=== PATIENT | male | born 1990 | race Caucasian/White ===

== ENCOUNTER 2017-05-09 12:50 | Emergency (ER) | payer SELFPAY ==
--- NOTE | 2017-05-09 13:26 | ER Document Report ---
ED Medical Screen (RME) - General Chief Complaint: Abdominal Pain Stated Complaint: ABDOMINAL PAIN Time Seen by Provider: 05/09/17 13:24 Notes: The patient is a 27-year-old male who presents with 4 days of right-sided abdominal pain. He says that it is a sharp sensation and worsening over the past day. Denies nausea, vomiting, urinary symptoms, diarrhea, constipation or fevers. PE: RUQ tenderness, NAD, tachycardia I have greeted and performed a rapid initial assessment of this patient. A comprehensive ED assessment and evaluation of the patient, analysis of test results and completion of the medical decision making process will be conducted by additional ED providers. TRAVEL OUTSIDE OF THE [place] IN LAST 30 DAYS: No - Related Data Allergies/Adverse Reactions: hydromorphone HCl [From Dilaudid] Allergy (Intermediate, Verified 05/09/17 12:56 ) redness in face Past Medical History - Past Medical History Cardiac Medical History: Denies: Hx Coronary Artery Disease, Hx Hypertension Pulmonary Medical History: Denies: Hx Asthma Endocrine Medical History: Denies: Hx Diabetes Mellitus Type 1, Hx Diabetes Mellitus Type 2 Renal/ Medical History: Denies: Hx Peritoneal Dialysis Psychiatric Medical History: Reports: Hx Depression Traumatic Medical History: Reports: Hx Fractures Past Surgical History: Reports: Hx Orthopedic Surgery - femur - Immunizations Hx Diphtheria, Pertussis, Tetanus Vaccination: Yes Physical Exam - Vital signs Vitals: Temp Pulse Resp BP Pulse Ox 98.0 F 104 H 22 H 151/92 H 96 05/09/17 12:56 05/09/17 12:56 05/09/17 12:56 05/09/17 12:56 05/09/17 12:56 Course - Vital Signs Vital signs: Temp Pulse Resp BP Pulse Ox 98.0 F 104 H 22 H 151/92 H 96 05/09/17 12:56 05/09/17 12:56 05/09/17 12:56 05/09/17 12:56 05/09/17 12:56
[2017-05-09] MEDS ORDERED: MORPHINE SULFATE 10 MG/ML INJ IV ONE ×2 (13:46→16:22)
--- NOTE | 2017-05-09 13:49 | ER Document Report ---
ED GI/ - General Chief Complaint: Abdominal Pain Stated Complaint: ABDOMINAL PAIN Time Seen by Provider: 05/09/17 13:24 Mode of Arrival: Ambulatory Information source: Patient TRAVEL OUTSIDE OF THE [place] IN LAST 30 DAYS: No - HPI Patient complains to provider of: Abdominal pain Onset: Other - 5 days Timing/Duration: Gradual, Persistent Quality of pain: Sharp, Stabbing Severity at maximum: Moderate Severity in ED: Moderate Pain Level: 4 Location: Right flank Associated symptoms: None Exacerbated by: Denies Relieved by: Denies Similar symptoms previously: No Recently seen / treated by doctor: No Notes: 05/09/17 13:47 Patient is a 27-year-old male who presents to the emergency room complaining of right-sided abdominal pain that has been present over the past 5 days, it is sharp and stabbing in nature, he denies a fever or chills, no dysuria or hematuria, no nausea, vomiting or diarrhea, no aggravating or alleviating, he denies a history of similar symptoms previously, he is not currently on any medications, he does not smoke, drink or use drugs - Related Data Allergies/Adverse Reactions: hydromorphone HCl [From Dilaudid] Allergy (Intermediate, Verified 05/09/17 12:56 ) redness in face Past Medical History - General Information source: Patient - Social History Smoking Status: Never Smoker Family History: None Patient has suicidal ideation: No Patient has homicidal ideation: No - Past Medical History Cardiac Medical History: Denies: Hx Coronary Artery Disease, Hx Hypertension Pulmonary Medical History: Denies: Hx Asthma Endocrine Medical History: Denies: Hx Diabetes Mellitus Type 1, Hx Diabetes Mellitus Type 2 Renal/ Medical History: Denies: Hx Peritoneal Dialysis Psychiatric Medical History: Reports: Hx Depression Traumatic Medical History: Reports: Hx Fractures Past Surgical History: Reports: Hx Orthopedic Surgery - femur - Immunizations Hx Diphtheria, Pertussis, Tetanus Vaccination: Yes Review of Systems - Review of Systems Constitutional: No symptoms reported EENT: No symptoms reported Cardiovascular: No symptoms reported Respiratory: No symptoms reported Gastrointestinal: See HPI Genitourinary: No symptoms reported Male Genitourinary: No symptoms reported Musculoskeletal: No symptoms reported Skin: No symptoms reported Hematologic/Lymphatic: No symptoms reported Neurological/Psychological: No symptoms reported -: Yes All other systems reviewed and negative Physical Exam - Vital signs Vitals: Temp Pulse Resp BP Pulse Ox 98.0 F 104 H 22 H 151/92 H 96 05/09/17 12:56 05/09/17 12:56 05/09/17 12:56 05/09/17 12:56 05/09/17 12:56 Interpretation: Normal - General General appearance: Appears well, Alert - HEENT Head: Normocephalic, Atraumatic Eyes: Normal Pupils: PERRL - Respiratory Respiratory status: No respiratory distress Chest status: Nontender Breath sounds: Normal Chest palpation: Normal - Cardiovascular Rhythm: Regular Heart sounds: Normal auscultation Murmur: No - Abdominal Inspection: Normal Distension: No distension Bowel sounds: Normal Tenderness: Tender - Right Flank tenderness Organomegaly: No organomegaly - Back Back: Normal, Nontender - Extremities General upper extremity: Normal inspection, Nontender, Normal color, Normal ROM , Normal temperature General lower extremity: Normal inspection, Nontender, Normal color, Normal ROM , Normal temperature, Normal weight bearing. No: Cassandra's sign - Neurological Neuro grossly intact: Yes Cognition: Normal Orientation: AAOx4 [place] Coma Scale Eye Opening: Spontaneous [place] Coma Scale Verbal: Oriented [place] Coma Scale Motor: Obeys Commands [place] Coma Scale Total: 15 Speech: Normal Motor strength normal: LUE, RUE, LLE, RLE Sensory: Normal - Psychological Associated symptoms: Normal affect, Normal mood - Skin Skin Temperature: Warm Skin Moisture: Dry Skin Color: Normal Course - Re-evaluation Re-evalutation: 05/09/17 17:50 Patient is resting comfortably, denies any respiratory symptoms, no coughing, no chest pain, no shortness of breath, I did review his lab and imaging findings which are unremarkable except for loculated pleural effusion on the right side with a pleural effusion on the left, he reports to me that these have "been there for years", he has been worked up and had chest tubes as well as thoracentesis regarding these problems, since he is not having any respiratory complaints, and he has a known history of this previously, he will be discharged with pain medication and information for follow-up, advised to return if any additional concerns, patient acknowledges understanding and agreement with this plan 05/09/17 17:56 - Vital Signs Vital signs: Temp Pulse Resp BP Pulse Ox 98.0 F 104 H 22 H 151/92 H 96 05/09/17 12:56 05/09/17 12:56 05/09/17 12:56 05/09/17 12:56 05/09/17 12:56 - Laboratory Result Diagrams: 05/09/17 13:33 05/09/17 13:33 Laboratory results interpreted by me: 05/09/17 05/09/17 05/09/17 13:33 13:33 13:33 Lymphocytes % 12.9 L Monocytes % 13.2 H Carbon Dioxide 31 H Urine Protein 30 H Urine Blood SMALL H - Diagnostic Test Radiology reviewed: Image reviewed, Reports reviewed Discharge - Discharge Clinical Impression: Flank pain, acute, Pleural effusion, bilateral Condition: Stable Disposition: HOME, SELF-CARE Instructions: Abdominal Pain ([facility]) Additional Instructions: Follow up with your primary care provider in one to 2 days. Return to the emergency room immediately if symptoms worsen or any additional concerns. Prescriptions: Hydrocodone/Acetaminophen [Hydrocodon-Acetaminophen 5-325] 1 each PO Q6 #14 tablet
[2017-05-09] MEDS: NORMAL SALINE 1000 ML 1,000 ML IV PRN ×2 (13:56→18:18)
[2017-05-09 13:58] LABS: ABSOLUTE MONOCYTES (AUTO) 0.8 10^3/uL (0.1-1.4); ABSOLUTE NEUT (AUTO) 4.2 10^3/uL (1.7-8.2); HEMOGLOBIN 15.2 g/dL (13.5-17.0); WHITE BLOOD COUNT 5.9 10^3/uL (4.0-10.5)
[2017-05-09 14:05] LABS: APPEARANCE,URINE SLIGHTLY-CLOUDY; BILIRUBIN,URINE NEGATIVE (NEGATIVE); GLUCOSE, URINE NEGATIVE (NEGATIVE); KETONES,URINE NEGATIVE (NEGATIVE); LEUKOCYTE ESTERASE,URINE NEGATIVE (NEGATIVE); NITRITE,URINE NEGATIVE (NEGATIVE); PROTEIN,URINE 30 mg/dL (NEGATIVE); URINE SPECIFIC GRAVITY 1.018; UROBILINOGEN,URINE NEGATIVE mg/dL (<2.0)
[2017-05-09 14:06] LABS: ABSOLUTE BASOPHILS # (AUTO) 0.1 10^3/uL (0.0-0.2); ABSOLUTE EOSINOPHILS # (AUTO) 0.1 10^3/uL (0.0-0.6); ABSOLUTE LYMPHOCYTES (AUTO) 0.8 10^3/uL (0.5-4.7); BASOPHILS % (AUTO) 0.9 % (0-2); EOSINOPHILS % (AUTO) 2.4 % (0-6); HEMATOCRIT 44.3 % (37.9-51.0); HGB HCT DIFFERENCE 1.3; LYMPHOCYTES % (AUTO) 12.9 % (13-45); MEAN CORPUSCULAR HEMOGLOBIN 30.6 pg (27.0-33.4); MEAN CORPUSCULAR HGB CONC 34.3 g/dL (32.0-36.0); MEAN CORPUSCULAR VOLUME 89 fl (80-97); MONOCYTES % (AUTO) 13.2 % (3-13); RED BLOOD COUNT 4.97 10^6/uL (4.35-5.55); RED CELL DISTRIBUTION WIDTH 12.8 % (11.5-14.0); SEGMENTED NEUTROPHILS % (AUTO) 70.6 % (42-78)
[2017-05-09 14:17] LABS: ALANINE AMINOTRANSFERASE 22 U/L (21-72); ALBUMIN 4.1 g/dL (3.5-5.0); ALKALINE PHOSPHATASE 84 U/L (38-126); ANION GAP 11 (5-19); ASPARTATE AMINO TRANSFERASE 21 U/L (17-59); BILIRUBIN,DIRECT 0.3 mg/dL (0.0-0.4); BILIRUBIN,TOTAL 1.1 mg/dL (0.2-1.3); BLOOD UREA NITROGEN 14 mg/dL (7-20); CALCIUM 9.2 mg/dL (8.4-10.2); CARBON DIOXIDE 31 mmol/L (22-30); CHLORIDE 101 mmol/L (98-107); CREATININE RESULT 0.72 mg/dL (0.52-1.25); GLUCOSE 87 mg/dL (75-110); LIPASE 39.8 U/L (23-300); POTASSIUM 4.3 mmol/L (3.6-5.0); SODIUM 142.9 mmol/L (137-145); TOTAL PROTEIN 7.6 g/dL (6.3-8.2)
--- NOTE | 2017-05-09 17:33 | RADIOLOGY REPORT (SQ) ---
EXAM DESCRIPTION: CT ABD/PELVIS WITH IV ORAL COMPLETED DATE/TIME: 05/09/2017 4:48 pm REASON FOR STUDY: abdominal pain COMPARISON: None. TECHNIQUE: CT scan of the abdomen and pelvis performed using helical scanning technique with dynamic intravenous contrast injection. Oral contrast. Images reviewed with lung, soft tissue, and bone win dows. Reconstructed coronal and sagittal MPR images reviewed. Delayed images for evaluation of the ur inary system also acquired. All images stored on PACS. All CT scanners at this facility use dose modulation, iterative reconstruction, and/or weight based d osing when appropriate to reduce radiation dose to as low as reasonably achievable (ALARA). [facility]: Dose Right [facility]: CareDose [facility]: Dose Right [facility]: Teradose 4D [facility]: [place] CONTRAST TYPE AND DOSE: contrast/concentration: Isovue 370.00 mg/ml; Total Contrast Delivered: 78.0 ml; Total Saline Delivered: 32.1 ml RENAL FUNCTION: CREATININE 0.7 BUN 14 RADIATION DOSE: Up-to-date CT equipment and radiation dose reduction techniques were employed. CTDIv ol: 6.1 - 8.4 mGy. DLP: 836 mGy-cm.. LIMITATIONS: None. FINDINGS: LOWER CHEST: Subsegmental atelectasis in the lung bases. Calcified pleural plaques in eac h base. Loculated right pleural effusion versus circumferential pleural thickening. Small left pleu ral effusion. LIVER: Normal size. No masses. No dilated ducts. SPLEEN: Normal size. Small cyst. PANCREAS: No masses. No significant calcifications. No adjacent inflammation or peripancreatic fluid collections. Pancreatic duct not dilated. GALLBLADDER: No identified stones by CT criteria. No inflammatory changes to suggest cholecystitis. ADRENAL GLANDS: No significant masses or asymmetry. RIGHT KIDNEY AND URETER: No solid masses. No significant calcifications. No hydronephrosis or hyd roureter. LEFT KIDNEY AND URETER: No solid masses. No significant calcifications. No hydronephrosis or hydr oureter. AORTA AND VESSELS: No aneurysm. No dissection. Renal arteries, SMA, celiac without stenosis. RETROPERITONEUM: No retroperitoneal adenopathy, hemorrhage or masses. BOWEL AND PERITONEAL CAVITY: No masses or inflammatory changes. No free fluid or peritoneal masses. APPENDIX: Normal. PELVIS: No mass or free fluid. Normal bladder. ABDOMINAL WALL: No masses. No hernias. BONES: No significant or acute findings. OTHER: No other significant finding. IMPRESSION: 1. There is considerable pleural disease each side of the chest, especially for a patie nt this young. This includes calcified pleural plaques and apparent pleural effusions. Correlate cl inically, historically. Has the patient had prior studies elsewhere? 2. There is no significant abnormality in the abdomen or pelvis. TECHNICAL DOCUMENTATION: JOB ID: [id number] Quality ID # [id number]: Final reports with documentation of one or more dose reduction techniques (e.g., Au tomated exposure control, adjustment of the mA and/or kV according to patient size, use of iterative reconstruction technique) 2010 [employer]- All Rights Reserved
[2017-05-09 18:39] VITALS: BP 142/80
== END 2017-05-09 18:20 | disposition home or self-care (01) ==
LOC: ER 12:50
DX: R10.9 Unspecified abdominal pain (principal); J90 Pleural effusion, not elsewhere classified
CPT/HCPCS: 96376; 99284; 96361; 96374; 36415; 83690; 85025; 80053; 81001; 74177; J2270; J7030

== ENCOUNTER 2019-06-07 04:36 | Inpatient (IN) | payer OTHER ==
--- NOTE | 2019-06-07 05:16 | ER Document Report ---
Doctor's Note Notes: 06/07/19 05:15 I performed a triage evaluation the patient. Patient is a pleasant 29-year-old male with a complex medical history that is not 100% clear. He presents with difficulty breathing tonight. Says he has had difficulty breathing similar to this before. He says it happened several years ago. He was admitted to [facility] in [place] and says that he thinks his thoracic duct was leaking and they could not stop it and therefore you do have part of his lung removed. Denies any chest pain. Denies any fevers. He has no other complaints at this time. He says he will sometimes get fluid on his lungs because of this previous lung issue. On exam patient has some mild respiratory distress. He is feeling some improvement with supplemental oxygen. He does have rales in the lung bases. Denies any chest pain. I did order chest x-ray as well as baseline blood work. Dictation of this chart was performed using voice recognition software; therefore, there may be some unintended grammatical errors.
[2019-06-07 05:24] LABS: VENOUS BLOOD BASE EXCESS -0.2 mmol/L; VENOUS BLOOD PCO2 43.6 mmHg (35-63); VENOUS BLOOD PH 7.38 (7.30-7.42)
[2019-06-07 05:30] LABS: ALANINE AMINOTRANSFERASE 11 U/L (21-72); ALBUMIN 4.1 g/dL (3.5-5.0); ALKALINE PHOSPHATASE 88 U/L (38-126); ANION GAP 12 (5-19); ASPARTATE AMINO TRANSFERASE 19 U/L (17-59); BILIRUBIN,DIRECT 0.2 mg/dL (0.0-0.4); BILIRUBIN,TOTAL 0.9 mg/dL (0.2-1.3); BLOOD UREA NITROGEN 16 mg/dL (7-20); CALCIUM 9.1 mg/dL (8.4-10.2); CARBON DIOXIDE 26 mmol/L (22-30); CHLORIDE 101 mmol/L (98-107); GLUCOSE 100 mg/dL (75-110); POTASSIUM 4.5 mmol/L (3.6-5.0); TOTAL PROTEIN 7.7 g/dL (6.3-8.2)
[2019-06-07 05:41] LABS: ABSOLUTE BASOPHILS # (AUTO) 0.1 10^3/uL (0.0-0.2); ABSOLUTE EOSINOPHILS # (AUTO) 0.1 10^3/uL (0.0-0.6); ABSOLUTE LYMPHOCYTES (AUTO) 0.4 10^3/uL (0.5-4.7); ABSOLUTE MONOCYTES (AUTO) 0.8 10^3/uL (0.1-1.4); ABSOLUTE NEUT (AUTO) 4.9 10^3/uL (1.7-8.2); BASOPHILS % (AUTO) 1.1 % (0-2); EOSINOPHILS % (AUTO) 1.2 % (0-6); HEMATOCRIT 30.4 % (37.9-51.0); HEMOGLOBIN 9.2 g/dL (13.5-17.0); LYMPHOCYTES % (AUTO) 6.7 % (13-45); MEAN CORPUSCULAR HEMOGLOBIN 21.2 pg (27.0-33.4); MEAN CORPUSCULAR HGB CONC 30.4 g/dL (32.0-36.0); MEAN CORPUSCULAR VOLUME 70 fl (80-97); PLATELET COUNT 431 10^3/uL (150-450); RED BLOOD COUNT 4.36 10^6/uL (4.35-5.55); RED CELL DISTRIBUTION WIDTH 18.1 % (11.5-14.0); TOTAL CELLS COUNTED % (AUTO) 100 %; WHITE BLOOD COUNT 6.2 10^3/uL (4.0-10.5)
[2019-06-07 05:42] LABS: NT PRO BNP 454 pg/mL (<125)
[2019-06-07 05:45] LABS: TROPONIN I < 0.012 ng/mL
--- NOTE | 2019-06-07 06:29 | ER Document Report ---
ED General - General Chief Complaint: Shortness Of Breath Stated Complaint: DIFFICULTY BREATHING/COUGHING UP BLOOD Time Seen by Provider: 06/07/19 05:07 TRAVEL OUTSIDE OF THE [place] IN LAST 30 DAYS: No - HPI Notes: Patient is a 29-year-old male that presents to the emergency department for chief complaint of shortness of breath and hemoptysis. Patient reports pink-tinged sputum over the last 3 weeks. He states it is not daily but a few times a week. Patient reports associated shortness of breath that has been progressively getting worse as well. Patient states when he was 20 he had a leaking thoracic duct which resulted in right lower lobectomy. This was all performed at [facility]. Patient states he has had shortness of breath since but not to this extreme. He states he does intermittently have hemoptysis but not as frequent as he has recently. Patient states during that time he was on blood thinning medications for blood clot in his neck but he is not currently on anticoagulation. He denies known PE or DVT. He denies recent surgery, travel, immobilization and lower extremity swelling or cramping. Patient denies any associated chest pain, palpitations, syncope, fevers and co ugh Past Medical History: Negative Past Surgical History: Right lower lobectomy, right femur fracture repair Social History: Denies drugs alcohol and tobacco Family History: Reviewed and noncontributory for presenting illness Allergies: Reviewed, see documented allergy list. REVIEW OF SYSTEMS: CONSTITUTIONAL : No fever No chills No diaphoresis No recent illness EENT: No vision changes No congestion No sore throat CARDIOVASCULAR: No chest pain No palpitations RESPIRATORY: shortness of breath No cough difficulty breathing GASTROINTESTINAL: No abdominal pain No nausea No vomiting No diarrhea GENITOURINARY: No dysuria No hematuria No difficulty urinating MUSCULOSKELETAL: No back pain No leg pain No arm pain SKIN: No rashes No lesions LYMPHATIC: No swollen, enlarged glands. NEUROLOGICAL: No lightheadedness No headache No weakness No paresthesias PSYCHIATRIC: No anxiety No depression PHYSICAL EXAMINATION: Vital signs reviewed, nursing noted reviewed. GENERAL: Well-appearing, well-nourished and in no acute distress. HEAD: Atraumatic, normocephalic. EYES: Eyes appear normal, extraocular movements intact, sclera anicteric, conj unctiva are normal. ENT: nares patent, oropharynx clear without exudates. Moist mucous membranes. NECK: Normal range of motion, supple without lymphadenopathy LUNGS: Breath sounds diminished with bibasilar Rales to auscultation bilaterally and equal. Tachypneic with mild accessory muscle use HEART: Regular rate and rhythm without murmurs ABDOMEN: Soft, nontender, normoactive bowel sounds. No rebound, guarding, or rigidity. No masses appreciated. EXTREMITIES: Nontender, good range of motion, no pitting or edema. NEUROLOGICAL: No focal neurological deficits. Moves all extremities spon taneously Motor and sensory grossly intact on exam. PSYCH: Normal mood, normal affect. SKIN: Warm, Dry, normal turgor, no rashes or lesions noted on exposed skin - Related Data Allergies/Adverse Reactions: hydromorphone HCl [From Dilaudid] Allergy (Intermediate, Verified 05/09/17 18:27) redness in face Past Medical History - Social History Smoking Status: Never Smoker Chew tobacco use (# tins/day): No Drug Abuse: None Family History: None Patient has suicidal ideation: No Patient has homicidal ideation: No - Past Medical History Cardiac Medical History: Denies: Hx Coronary Artery Disease, Hx Hypertension Pulmonary Medical History: Denies: Hx Asthma Endocrine Medical History: Denies: Hx Diabetes Mellitus Type 1, Hx Diabetes Mellitus Type 2 Renal/ Medical History: Denies: Hx Peritoneal Dialysis Psychiatric Medical History: Reports: Hx Depression Traumatic Medical History: Reports: Hx Fractures Past Surgical History: Reports: Hx Orthopedic Surgery - femur - Immunizations Hx Diphtheria, Pertussis, Tetanus Vaccination: Yes Physical Exam - Vital signs Vitals: Temp Pulse Resp BP Pulse Ox 98.2 F 128 H 24 H 146/71 H 79 L 06/07/19 04:42 06/07/19 04:42 06/07/19 04:42 06/07/19 04:42 06/07/19 04:42 Course - Re-evaluation Re-evalutation: 06/07/19 06:30 Vitals reviewed. Nursing notes reviewed. Patient was 65% SPO2 on room air at presentation. He is currently on 2 L nasal cannula and oxygenating at 95%. Patients EKG shows no ischemic changes 06/07/19 08:02 Patient's chest x-ray shows diffuse opacities consistent with pulmonary edema. He has no PE on CT scan. Patient's blood work shows a slight elevation of BNP. He is also anemic with hemoglobin of 9. Chart review does show previous hemoglobin of 9. Patient will be given a dose of IV Lasix for his pulmonary edema. He is still requiring nasal cannula oxygen to maintain his O2 sats in the 90s and does have an increased work of breathing. Patient's care was discussed with Dr. Cabral Laboratory 06/07/19 06/07/19 06/07/19 04:55 04:55 04:55 WBC 6.2 RBC 4.36 Hgb 9.2 L Hct 30.4 L MCV 70 L MCH 21.2 L MCHC 30.4 L RDW 18.1 H Plt Count 431 Seg Neutrophils % 78.0 Lymphocytes % 6.7 L Monocytes % 13.0 Eosinophils % 1.2 Basophils % 1.1 Absolute Neutrophils 4.9 Absolute Lymphocytes 0.4 L Absolute Monocytes 0.8 Absolute Eosinophils 0.1 Absolute Basophils 0.1 VBG pH VBG pCO2 VBG HCO3 VBG Base Excess Sodium 138.8 Potassium 4.5 Chloride 101 Carbon Dioxide 26 Anion Gap 12 BUN 16 Creatinine 0.67 Est GFR ( Amer) > 60 Est GFR (Non-Af Amer) > 60 Glucose 100 Calcium 9.1 Total Bilirubin 0.9 Direct Bilirubin 0.2 Neonat Total Bilirubin Not Reportable Neonat Direct Bilirubin Not Reportable Neonat Indirect Bili Not Reportable AST 19 ALT 11 L Alkaline Phosphatase 88 Troponin I < 0.012 NT-Pro-B Natriuret Pep 454 H Total Protein 7.7 Albumin 4.1 06/07/19 04:55 WBC RBC Hgb Hct MCV MCH MCHC RDW Plt Count Seg Neutrophils % Lymphocytes % Monocytes % Eosinophils % Basophils % Absolute Neutrophils Absolute Lymphocytes Absolute Monocytes Absolute Eosinophils Absolute Basophils VBG pH 7.38 VBG pCO2 43.6 VBG HCO3 25.0 VBG Base Excess -0.2 Sodium Potassium Chloride Carbon Dioxide Anion Gap BUN Creatinine Est GFR ( Amer) Est GFR (Non-Af Amer) Glucose Calcium Total Bilirubin Direct Bilirubin Neonat Total Bilirubin Neonat Direct Bilirubin Neonat Indirect Bili AST ALT Alkaline Phosphatase Troponin I NT-Pro-B Natriuret Pep Total Protein Albumin Chest X-Ray 06/07/19 05:07 IMPRESSION: Moderate mixed interstitial and airpace opacities. Differential diagnosis includes pulmonary edema, multifocal pneumonia, and chronic interstitial lung disease. h who accepts admission. - Vital Signs Vital signs: Temp Pulse Resp BP Pulse Ox 98.2 F 114 H 22 H 130/80 H 94 06/07/19 04:42 06/07/19 05:13 06/07/19 07:01 06/07/19 07:00 06/07/19 07:01 - Laboratory Result Diagrams: 06/07/19 04:55 06/07/19 04:55 Laboratory results interpreted by me: 06/07/19 06/07/19 06/07/19 04:55 04:55 04:55 Hgb 9.2 L Hct 30.4 L MCV 70 L MCH 21.2 L MCHC 30.4 L RDW 18.1 H Lymphocytes % 6.7 L Absolute Lymphocytes 0.4 L ALT 11 L NT-Pro-B Natriuret Pep 454 H - EKG Interpretation by Me Additional EKG results interpreted by me: 06/07/19 06:29 Interpreted by myself [id number]: Sinus tachycardia, rate 115, normal axis, no ectomy, no STEMI Discharge - Discharge Clinical Impression: Respiratory failure with hypoxia Qualifiers: Chronicity: acute Qualified Code(s): J96.01 - Acute respiratory failure with hypoxia Anemia Qualifiers: Anemia type: other cause Other causes of anemia: other cause, not classified Qualified Code(s): D64.89 - Other specified anemias Pulmonary edema Qualifiers: Chronicity: acute Qualified Code(s): J81.0 - Acute pulmonary edema Condition: Stable Disposition: ADMITTED INPATIENT Admitting Provider: Italo (Hospitalist) Unit Admitted: Telemetry
--- NOTE | 2019-06-07 06:37 | RADIOLOGY REPORT (SQ) ---
EXAM DESCRIPTION: XR CHEST 1 VIEW COMPLETED DATE/TME: 06/07/2019 05:07 CLINICAL HISTORY: 29 years Male, dyspnea COMPARISON: None. NUMBER OF VIEWS/TECHNIQUE: 1/AP FINDINGS: Moderate mixed airspace and interstitial opacities, central. Bilateral lower thoracic opacity/effusion. Adequate lung volume, prominent cardiac silhouette, and intact bony thorax. IMPRESSION: Moderate mixed interstitial and airpace opacities. Differential diagnosis includes pulmonary edema, multifocal pneumonia, and chronic interstitial lung disease.
--- NOTE | 2019-06-07 07:41 | RADIOLOGY REPORT (SQ) ---
EXAM DESCRIPTION: CT CHEST ANGIOGRAPHY WITHOUT THEN WITH IV CONTRAST COMPLETED DATE/TME: 06/07/2019 06:22 CLINICAL HISTORY: 29 years Male, shortness of breath. CREAT 0.67 Comparison: CT, abdomen/pelvis, 05/13/17, images only. Technique: IV contrast. Coronal and sagittal reformat. 3d reconstruction. This exam was performed according to our departmental dose-optimization program, which includes automated exposure control, adjustment of the mA and/or kV according to patient size and/or use of iterative reconstruction technique.[facility]: Dose Right [facility]: CareDose [facility]: Dose Right [facility]: Teradose 4D [facility]: [employer] LIMITATIONS: Posterior sulci not fully imaged. Findings: Bilateral pleural based collections with high attenuation components measuring up to 5.4 cm at the right lateral posterior sulcus partially imaged without significant change compared with prior CT from May 09, 2017. [id number] bilateral pleural effusions. Moderate streaky and consolidative opacity of bilateral lower lungs. Small moderate bilateral pleural effusions. [id number] mediastinal lymphadenopathy. Cardiac enlargement. No pulmonary embolus. Inferior neck, axillae, airway, heart, vasculature, upper abdomen, and musculoskeleton appear otherwise unremarkable. Impression: 1. Moderate mixed interstitial and airpace opacities. Mild/moderate mediastinal lymphadenopathy. Differential diagnosis includes CHF/pulmonary edema, multifocal pneumonia, and chronic interstitial lung disease. 2. Chronic bilateral pleural collections with high attenuation components partially imaged without significant interval change. 3. No pulmonary embolus. 4. Limitation. Posterior sulci not fully imaged.
[2019-06-07] MEDS ORDERED: FUROSEMIDE INJ/PF 40 MG/4 ML SDV IV ONE (07:50)
[2019-06-07] MEDS ORDERED: TEMAZEPAM 15 MG CAPSULE PO PRN (08:45)
[2019-06-07] MEDS ORDERED: ONDANSETRON HCL INJ/PF 4 MG/2 ML SDV IV PRN (08:45)
--- NOTE | 2019-06-07 08:45 | PDOC H&P ---
History of Present Illness History of Present Illness: ELZBIETA VILLAVICENCIO is a 29 year old male patient with past medical history of ruptured thoracic duct for which he undergone thoracotomy and right lower lobectomy at [facility] in [place], presented with chief complaint of intermittent bloodstained sputum for the last 3 weeks. Patient has associated shortness of breath which is worsening gradually. Patient denies any fever, chills, chest pain, palpitation or diaphoresis. Patient denies any loss of appetite, night sweating or weight loss. He denies any contact with chronically coughing patient. He denies also any incarceration or travel outside [place]. His blood work is significant for microcytic anemia with hemoglobin of 9.2 and his BNP is 454. CT scan and chest x-ray are reported as moderate mixed interstitial and airspace opacities. Pulmonary embolism has been ruled out. Past Medical History Cardiac Medical History: Denies: Coronary Artery Disease, Hypertension Pulmonary Medical History: Denies: Asthma Endocrine Medical History: Denies: Diabetes Mellitus Type 1, Diabetes Mellitus Type 2 Psychiatric Medical History: Reports: Depression Past Surgical History Past Surgical History: Reports: Orthopedic Surgery - femur Social History Smoking Status: Never Smoker Frequency of Alcohol Use: None Hx Recreational Drug Use: No Drugs: None Hx Prescription Drug Abuse: No - Advance Directive Resuscitation Status: Full Code Family History Family History: None Parental Family History Reviewed: Yes Children Family History Reviewed: Yes Sibling(s) Family History Reviewed.: Yes Medication/Allergy Home Medications: Ascorbic Acid [C-1000] 500 mg PO DAILY 04/09/16 Aspirin [Aspirin 325 mg Tablet] 325 mg PO DAILY 04/09/16 Cholecalciferol (Vitamin D3) [Vitamin D3 1000 Unit Tablet] 1,000 unit PO DAILY 04/09/16 Docusate Sodium [Colace 100 mg Capsule] 100 mg PO BID 04/09/16 Ergocalciferol (Vitamin D2) [Drisdol 50,000 unit (1.25MG) Capsule] 1 cap PO [id number] 04/09/16 Famotidine 20 mg PO BID 04/09/16 Nafcillin Sodium 2 gm IJ DAILY 04/09/16 Reading-3 Fatty Acids/Fish Oil [Theragran-M 1,200 mg Softgel] 1 each PO WSUPPER 04/09/16 Ferrous Sulfate [Feosol 325 mg Tablet] 325 mg PO BID #60 tablet 04/26/16 Hydrocodone/Acetaminophen [Hydrocodon-Acetaminophen 5-325] 1 each PO Q6 #14 tablet 05/09/17 Allergies/Adverse Reactions: hydromorphone HCl [From Dilaudid] Allergy (Intermediate, Verified 05/09/17 18:27) redness in face Review of Systems Constitutional: ABSENT: chills, fever(s), headache(s), weight gain, weight loss Eyes: ABSENT: visual disturbances Ears: ABSENT: hearing changes Cardiovascular: ABSENT: chest pain, dyspnea on exertion, edema, orthropnea, palpitations Respiratory: PRESENT: dyspnea, hemoptysis Gastrointestinal: ABSENT: abdominal pain, constipation, diarrhea, hematemesis, hematochezia, nausea, vomiting Genitourinary: ABSENT: dysuria, hematuria Musculoskeletal: ABSENT: joint swelling Integumentary: ABSENT: rash, wounds Neurological: ABSENT: abnormal gait, abnormal speech, confusion, dizziness, focal weakness, syncope Psychiatric: ABSENT: anxiety, depression, homidical ideation, suicidal ideation Endocrine: ABSENT: cold intolerance, heat intolerance, polydipsia, polyuria Hematologic/Lymphatic: ABSENT: easy bleeding, easy bruising Physical Exam Vital Signs: Temp Pulse Resp BP Pulse Ox 98.2 F 114 H 22 H 130/80 H 94 06/07/19 04:42 06/07/19 05:13 06/07/19 07:01 06/07/19 07:00 06/07/19 07:01 Intake & Output 06/06/19 06/07/19 06/08/19 06:59 06:59 06:59 Weight 61.235 kg General appearance: PRESENT: mild distress Head exam: PRESENT: atraumatic Eye exam: PRESENT: conjunctiva pink Neck exam: ABSENT: carotid bruit, JVD, lymphadenopathy, thyromegaly Respiratory exam: PRESENT: crackles Cardiovascular exam: PRESENT: RRR. ABSENT: diastolic murmur, rubs, systolic murmur GI/Abdominal exam: PRESENT: normal bowel sounds, soft. ABSENT: distended, guarding, mass, organolmegaly, rebound, tenderness Neurological exam: PRESENT: alert, awake, oriented to person, oriented to place, oriented to time, oriented to situation Results Laboratory Results: 06/07/19 04:55 06/07/19 04:55 06/07/19 06/07/19 06/07/19 04:55 04:55 04:55 WBC 6.2 RBC 4.36 Hgb 9.2 L Hct 30.4 L MCV 70 L MCH 21.2 L MCHC 30.4 L RDW 18.1 H Plt Count 431 Seg Neutrophils % 78.0 Lymphocytes % 6.7 L Monocytes % 13.0 Eosinophils % 1.2 Basophils % 1.1 Absolute Neutrophils 4.9 Absolute Lymphocytes 0.4 L Absolute Monocytes 0.8 Absolute Eosinophils 0.1 Absolute Basophils 0.1 VBG pH 7.38 VBG pCO2 43.6 VBG HCO3 25.0 VBG Base Excess -0.2 Sodium 138.8 Potassium 4.5 Chloride 101 Carbon Dioxide 26 Anion Gap 12 BUN 16 Creatinine 0.67 Est GFR ( Amer) > 60 Est GFR (Non-Af Amer) > 60 Glucose 100 Calcium 9.1 Total Bilirubin 0.9 AST 19 ALT 11 L Alkaline Phosphatase 88 Total Protein 7.7 Albumin 4.1 06/07/19 04:55 Troponin I < 0.012 NT-Pro-B Natriuret Pep 454 H Impressions: Chest X-Ray 06/07/19 05:07 IMPRESSION: Moderate mixed interstitial and airpace opacities. Differential diagnosis includes pulmonary edema, multifocal pneumonia, and chronic interstitial lung disease. Assessment and Plan - Diagnosis (1) Hemoptysis Is this a current diagnosis for this admission?: Yes Plan: Patient presented with chief complaint of intermittent blood-tinged sputum of [address] scan and chest x-ray reported as moderate mixed interstitial and airspace opacities. Patient also stated that he has history of previous intermittent hemoptysis since he had thoracic surgery. We will empirically start him on antibiotics. I will consult Dr. Layton in the management of this patient. (2) Possible multifocal pneumonia Is this a current diagnosis for this admission?: Yes Plan: Patient will be started empirically on Levaquin. (3) History of leaking thoracic duct Is this a current diagnosis for this admission?: Yes Plan: Status post right thoracotomy and right lower lobe lobectomy. We will retrieve his medical records from [facility]. - Inpatient Certification Medical Necessity: Need for IV Antibiotics
[2019-06-07] MEDS: FAMOTIDINE 20 MG TABLET PO SCH ×2 (10:39→21:14)
[2019-06-07] MEDS: LEVOFLOXACIN 750 MG/D5W RTU 750 MG/150 ML RTUPB IV SCH (10:39)
[2019-06-07] MEDS: ACETAMINOPHEN 325 MG TABLET PO PRN (16:34)
--- NOTE | 2019-06-07 18:18 | EKG REPORT ---
SEVERITY:- ABNORMAL ECG - SINUS TACHYCARDIA PROBABLE LEFT ATRIAL ABNORMALITY BORDERLINE RIGHT AXIS DEVIATION BORDERLINE T ABNORMALITIES, ANT-LAT LEADS : Confirmed by: Christianne Pacheco MD 07-Jun-2019 18:17:36
[2019-06-08 06:20] LABS: HEMATOCRIT 25.4 % (37.9-51.0); MEAN CORPUSCULAR HEMOGLOBIN 21.5 pg (27.0-33.4); MEAN CORPUSCULAR HGB CONC 30.8 g/dL (32.0-36.0); MEAN CORPUSCULAR VOLUME 70 fl (80-97); PLATELET COUNT 306 10^3/uL (150-450); RED BLOOD COUNT 3.64 10^6/uL (4.35-5.55); RED CELL DISTRIBUTION WIDTH 18.2 % (11.5-14.0); WHITE BLOOD COUNT 3.3 10^3/uL (4.0-10.5)
[2019-06-08 06:26] LABS: HEMOGLOBIN 7.8 g/dL (13.5-17.0)
[2019-06-08 06:40] LABS: ANION GAP 8 (5-19); BLOOD UREA NITROGEN 21 mg/dL (7-20); CALCIUM 8.6 mg/dL (8.4-10.2); CARBON DIOXIDE 29 mmol/L (22-30); CHLORIDE 100 mmol/L (98-107); GLUCOSE 79 mg/dL (75-110)
[2019-06-08 07:17] LABS: ERYTHROCYTE SEDIMENTATION RATE 28 mm/hr (0-15)
[2019-06-08 07:43] LABS: ABSOLUTE LYMPHOCYTES# (MANUAL) 0.6 10^3/uL (0.5-4.7); ABSOLUTE MONOCYTES # (MANUAL) 0.6 10^3/uL (0.1-1.4); BASOPHILS % (MANUAL) 1 % (0-2); EOSINOPHILS % (MANUAL) 5 % (0-6); LYMPHOCYTES % (MANUAL) 19 % (13-45); MONOCYTES % (MANUAL) 17 % (3-13); SEGMENTED NEUTROPHILS % (MAN) 58 % (42-78); TOTAL CELLS COUNTED 100
[2019-06-08 07:50] LABS: ANISOCYTOSIS 2+; HYPOCHROMASIA 2+; OVALOCYTES 1+; POIKILOCYTOSIS 1+; TEAR DROP CELLS 1+
[2019-06-08 08:25] LABS: PLATELET COMMENT ADEQUATE
[2019-06-08] MEDS: FAMOTIDINE 20 MG TABLET PO SCH ×2 (09:32→21:05)
[2019-06-08] MEDS: LEVOFLOXACIN 750 MG/D5W RTU 750 MG/150 ML RTUPB IV SCH (09:32)
[2019-06-08] MEDS ORDERED: IRON SUCROSE COMPLEX IV ONE (10:00)
[2019-06-08] MEDS ORDERED: NORMAL SALINE IV ONE (10:00)
[2019-06-08] MEDS ORDERED: IRON SUCROSE COMPLEX 300 MG in NORMAL SALINE 250 ML IV ONE (10:00)
--- NOTE | 2019-06-08 10:14 | PDOC PROGRESS REPORT ---
Subjective Progress Note for:: 06/08/19 Subjective:: ELZBIETA VILLAVICENCIO is a 29 year old male patient with past medical history of ruptured thoracic duct for which he undergone thoracotomy and right lower lobectomy at [facility] in [place], presented with chief complaint of intermittent bloodstained sputum for the last 3 weeks. Patient has associated shortness of breath which is worsening gradually. Patient denies any fever, chills, chest pain, palpitation or diaphoresis. Patient denies any loss of appetite, night sweating or weight loss. He denies any contact with chronically coughing patient. He denies also any incarceration or travel outside [place]. His blood work is significant for microcytic anemia with hemoglobin of 9.2 and his BNP is 454. CT scan and chest x-ray are reported as moderate mixed interstitial and airspace opacities. Pulmonary embolism has been ruled out. 06/08/2019: Patient seen and examined while he is resting on chair. Reports this the frequency of his hemoptysis has been decreasing. His shortness of breath is also improving. He does not have fever, nausea, vomiting or diarrhea. He is able to eat and tolerates well. His blood work is stable except for his hemoglobin dropped from 9.27.8. His MCV is also low and he has microcytic anemia. I requested iron studies and stool for occult blood. Patient has been started on Venofer. Reason For Visit: HEMOPTYSIS Physical Exam Vital Signs: Temp Pulse Resp BP Pulse Ox 98.5 F 88 17 112/59 L 100 06/08/19 08:00 06/08/19 08:00 06/08/19 08:00 06/08/19 08:00 06/08/19 08:00 Intake & Output 06/07/19 06/08/19 06/09/19 06:59 06:59 06:59 Intake Total 1380 Balance 1380 Weight 61.235 kg 62.3 kg General appearance: PRESENT: mild distress Head exam: PRESENT: atraumatic Eye exam: PRESENT: conjunctiva pink Neck exam: ABSENT: carotid bruit, JVD, lymphadenopathy, thyromegaly Respiratory exam: PRESENT: decreased breath sounds - Bilaterally Pulses: PRESENT: normal dorsalis pedis pul GI/Abdominal exam: PRESENT: normal bowel sounds, soft. ABSENT: distended, guarding, mass, organolmegaly, rebound, tenderness Neurological exam: PRESENT: alert, oriented to person, oriented to place, oriented to time, oriented to situation Results Laboratory Results: 06/08/19 05:03 06/08/19 05:03 06/08/19 06/08/19 05:03 05:03 WBC 3.3 L RBC 3.64 L Hgb 7.8 L Hct 25.4 L MCV 70 L MCH 21.5 L MCHC 30.8 L RDW 18.2 H Plt Count 306 Seg Neutrophils % Not Reportable Lymphocytes % Not Reportable Monocytes % Not Reportable Eosinophils % Not Reportable Basophils % Not Reportable Absolute Neutrophils Not Reportable Absolute Lymphocytes Not Reportable Absolute Monocytes Not Reportable Absolute Eosinophils Not Reportable Absolute Basophils Not Reportable Sodium 137.3 Potassium 4.0 Chloride 100 Carbon Dioxide 29 Anion Gap 8 BUN 21 H Creatinine 0.87 Est GFR ( Amer) > 60 Est GFR (Non-Af Amer) > 60 Glucose 79 Calcium 8.6 06/07/19 04:55 Troponin I < 0.012 NT-Pro-B Natriuret Pep 454 H Impressions: Chest X-Ray 06/07/19 05:07 IMPRESSION: Moderate mixed interstitial and airpace opacities. Differential diagnosis includes pulmonary edema, multifocal pneumonia, and chronic interstitial lung disease. Assessment and Plan - Diagnosis (1) Microcytic anemia Is this a current diagnosis for this admission?: Yes Plan: Etiology is unclear. Probably blood loss anemia due to chronic hemoptysis. Iron studies requested. He is going to get him Venofer. (2) Hemoptysis Is this a current diagnosis for this admission?: Yes (3) Possible multifocal pneumonia Is this a current diagnosis for this admission?: Yes Plan: Continue current antibiotics (4) History of leaking thoracic duct Is this a current diagnosis for this admission?: Yes Plan: Status post right thoracotomy and right lower lobe lobectomy. We will retrieve his medical records from [facility].
[2019-06-09 06:08] LABS: ABSOLUTE RETICS # 0.095 10^6/uL (0.028-0.122); HEMATOCRIT 25.5 % (37.9-51.0); MEAN CORPUSCULAR HEMOGLOBIN 21.5 pg (27.0-33.4); MEAN CORPUSCULAR VOLUME 69 fl (80-97); PLATELET COUNT 327 10^3/uL (150-450); RED BLOOD COUNT 3.67 10^6/uL (4.35-5.55); RED CELL DISTRIBUTION WIDTH 17.9 % (11.5-14.0); RETICULOCYTE COUNT (AUTO) 2.57 % (0.66-2.85); WHITE BLOOD COUNT 4.7 10^3/uL (4.0-10.5)
[2019-06-09 06:20] LABS: HEMOGLOBIN 7.9 g/dL (13.5-17.0)
[2019-06-09 06:28] LABS: C-REACTIVE PROTEIN 9.7 mg/L (<10.0); IRON(TIBC) 259.8 ug/dL (49-181)
[2019-06-09 07:32] LABS: FOLATE 9.05 ng/mL (>2.76)
[2019-06-09] MEDS: LEVOFLOXACIN 750 MG/D5W RTU 750 MG/150 ML RTUPB IV SCH (09:22)
[2019-06-09] MEDS: FAMOTIDINE 20 MG TABLET PO SCH ×2 (09:23→21:05)
[2019-06-09] MEDS ORDERED: IRON SUCROSE COMPLEX 300 MG in NORMAL SALINE 250 ML IV ONE (10:00)
[2019-06-09] MEDS: ALPRAZOLAM 0.5 MG TABLET PO SCH ×3 (10:55→21:05)
--- NOTE | 2019-06-09 13:57 | PDOC PROGRESS REPORT ---
Subjective Progress Note for:: 06/09/19 Subjective:: ELZBIETA VILLAVICENCIO is a 29 year old male patient with past medical history of ruptured thoracic duct for which he undergone thoracotomy and right lower lobectomy at [facility] in [place], presented with chief complaint of intermittent bloodstained sputum for the last 3 weeks. Patient has associated shortness of breath which is worsening gradually. Patient denies any fever, chills, chest pain, palpitation or diaphoresis. Patient denies any loss of appetite, night sweating or weight loss. He denies any contact with chronically coughing patient. He denies also any incarceration or travel outside [place]. His blood work is significant for microcytic anemia with hemoglobin of 9.2 and his BNP is 454. CT scan and chest x-ray are reported as moderate mixed interstitial and airspace opacities. Pulmonary embolism has been ruled out. 06/08/2019: Patient seen and examined while he is resting on chair. Reports this the frequency of his hemoptysis has been decreasing. His shortness of breath is also improving. He does not have fever, nausea, vomiting or diarrhea. He is able to eat and tolerates well. His blood work is stable except for his hemoglobin dropped from 9.27.8. His MCV is also low and he has microcytic anemia. I requested iron studies and stool for occult blood. Patient has been started on Venofer. 06/09/2019: Patient seen while resting on chair. He is awake alert and oriented. He complains of being depressed. His labs shows that his hemoglobin has slightly increased to 7.9. He is a stool for occult blood is also turned positive. I will consult on consult challenged for possible colonoscopy and EGD. Reason For Visit: HEMOPTYSIS Physical Exam Vital Signs: Temp Pulse Resp BP Pulse Ox 98.2 F 100 18 129/71 H 94 06/09/19 07:53 06/09/19 07:53 06/09/19 07:53 06/09/19 07:53 06/09/19 07:53 Intake & Output 06/08/19 06/09/19 06/10/19 06:59 06:59 06:59 Intake Total 1380 1220 415 Balance 1380 1220 415 Weight 62.3 kg 61.1 kg General appearance: PRESENT: no acute distress Eye exam: PRESENT: conjunctiva pale - Mild bilateral conjunctival pallor Neck exam: ABSENT: carotid bruit, JVD, lymphadenopathy, thyromegaly Respiratory exam: PRESENT: clear to auscultation jone. ABSENT: rales, rhonchi, wheezes Cardiovascular exam: PRESENT: RRR. ABSENT: diastolic murmur, rubs, systolic murmur GI/Abdominal exam: PRESENT: normal bowel sounds, soft. ABSENT: distended, guarding, mass, organolmegaly, rebound, tenderness Neurological exam: PRESENT: alert, awake, oriented to person, oriented to place Results Laboratory Results: 06/09/19 05:30 06/08/19 05:03 06/09/19 06/09/19 06/09/19 05:30 05:30 08:28 WBC 4.7 RBC 3.67 L Hgb 7.9 L Hct 25.5 L MCV 69 L MCH 21.5 L MCHC 31.0 L RDW 17.9 H Plt Count 327 Retic Count (auto) 2.57 Absolute Retic 0.095 Iron 259.8 H TIBC 286 % Saturation 91 Ferritin 95.90 C-Reactive Protein 9.7 Vitamin B12 300.0 Folate 9.05 Stool Occult Blood POSITIVE 06/07/19 04:55 Troponin I < 0.012 NT-Pro-B Natriuret Pep 454 H Impressions: Chest X-Ray 06/07/19 05:07 IMPRESSION: Moderate mixed interstitial and airpace opacities. Differential diagnosis includes pulmonary edema, multifocal pneumonia, and chronic interstitial lung disease. Assessment and Plan - Diagnosis (1) Microcytic anemia Is this a current diagnosis for this admission?: Yes Plan: Stool for occult blood is positive (2) Hemoptysis Is this a current diagnosis for this admission?: Yes Plan: Patient presented with chief complaint of intermittent blood-tinged sputum of [address] scan and chest x-ray reported as moderate mixed interstitial and airspace opacities. Patient also stated that he has history of previous intermittent hemoptysis since he had thoracic surgery. We will empirically start him on antibiotics. I will consult Dr. Layton in the management of this patient. (3) Possible multifocal pneumonia Is this a current diagnosis for this admission?: Yes Plan: Continue current antibiotics (4) History of leaking thoracic duct Is this a current diagnosis for this admission?: Yes
[2019-06-09] MEDS ORDERED: DEXTROSE 40% GEL 15 GM TUBE PO PRN ×4 (14:28→19:38)
[2019-06-09] MEDS ORDERED: DEXTROSE 50%-WATER 25 GM/50 ML DISP.SYRIN IV PRN ×4 (14:28→19:38)
[2019-06-09] MEDS ORDERED: GLUCAGON,HUMAN RECOMB 1 MG INJ SUBCUT PRN ×2 (14:28→19:38)
[2019-06-09] MEDS ORDERED: PEG 3350/NA SULF,BICARB,CL/KCL 4000 ML PO ONE (15:30)
--- NOTE | 2019-06-09 19:49 | PDOC CONSULTATION ---
Consultation Consult Date: 06/09/19 Attending physician:: YUMIKO CROUCH Provider Consulted: GARRETT GILES Consult reason:: Heme positive stool, anemia History of Present Illness Admission Date/PCP: 06/07/19 08:34 Patient complains of: Presents emergency department complaining of hemoptysis History of Present Illness: ELZBIETA VILLAVICENCIO is a 29 year old male Patient presents to the emerge department complaining of hemoptysis. Patient has a long complex history of multiple medical problems including thoracic duct ligation, right pleurodesis, right lower lobectomy [facility] 10 years ago. He has had intermittent episodes of hemoptysis since that time. He presents emergency department with anemia, hemoptysis and the positive stool. He has had multiple upper endoscopies with unknown findings. Patient is pleasant but a poor historian due to poor memory. He has had a few dark stools but now they are loose. He has never had a colonoscopy that he is aware of. Past Medical History Past Medical History: History of thoracic duct ligation, synostosis of the calvarium, rib fractures, right thoracotomy, right lower lobectomy, degree of pericarditis due to Salmonella, history of MRSA infection right lower extremity history of right femoral rodding Cardiac Medical History: Denies: Coronary Artery Disease, Hypertension Pulmonary Medical History: Denies: Asthma Endocrine Medical History: Denies: Diabetes Mellitus Type 1, Diabetes Mellitus Type 2 Psychiatric Medical History: Reports: Depression Past Surgical History Past Surgical History: See above Past Surgical History: Reports: Orthopedic Surgery - femur Social History Smoking Status: Never Smoker Frequency of Alcohol Use: None Hx Recreational Drug Use: No Drugs: None Hx Prescription Drug Abuse: No - Advance Directive Resuscitation Status: Full Code Family History Family History: None, Other - Patient originally from [facility]; now living with brother last 4 years in [facility] Parental Family History Reviewed: Yes Children Family History Reviewed: Yes Sibling(s) Family History Reviewed.: Yes Medication/Allergy Home Medications: No Home Medications 06/07/19 Allergies/Adverse Reactions: hydromorphone HCl [From Dilaudid] Allergy (Intermediate, Verified 05/09/17 18:27) redness in face Review of Systems ROS unobtainable: Due to mental status Ears: ABSENT: hearing changes Cardiovascular: PRESENT: other - History of pericarditis. ABSENT: chest pain, dyspnea on exertion, edema, orthropnea, palpitations Respiratory: PRESENT: other - Tonic respiratory insufficiency, hypoxemia, uses oxygen at home Physical Exam Vital Signs: Temp Pulse Resp BP Pulse Ox 98.0 F 105 H 18 120/74 90 L 06/09/19 16:38 06/09/19 16:38 06/09/19 16:38 06/09/19 16:38 06/09/19 16:38 Intake & Output 06/08/19 06/09/19 06/10/19 06:59 06:59 06:59 Intake Total 1380 1220 1545 Balance 1380 1220 1545 Weight 62.3 kg 61.1 kg General appearance: PRESENT: no acute distress Head exam: PRESENT: other - Scars consistent with previous craniotomy Eye exam: PRESENT: EOMI, other - Mild X Ear exam: PRESENT: normal external ear exam Mouth exam: PRESENT: other Respiratory exam: PRESENT: other - ; Scars chest wall consistent with previous operative interventions GI/Abdominal exam: PRESENT: other - Soft nontender Rectal exam: PRESENT: deferred Musculoskeletal exam: PRESENT: other - Muscular atrophy Neurological exam: PRESENT: awake, oriented to person, oriented to place Results Laboratory Results: 06/09/19 05:30 06/08/19 05:03 06/09/19 06/09/19 06/09/19 05:30 05:30 08:28 WBC 4.7 RBC 3.67 L Hgb 7.9 L Hct 25.5 L MCV 69 L MCH 21.5 L MCHC 31.0 L RDW 17.9 H Plt Count 327 Retic Count (auto) 2.57 Absolute Retic 0.095 Iron 259.8 H TIBC 286 % Saturation 91 Ferritin 95.90 C-Reactive Protein 9.7 Vitamin B12 300.0 Folate 9.05 Stool Occult Blood POSITIVE 06/07/19 04:55 Troponin I < 0.012 NT-Pro-B Natriuret Pep 454 H Impressions: Chest X-Ray 06/07/19 05:07 IMPRESSION: Moderate mixed interstitial and airpace opacities. Differential diagnosis includes pulmonary edema, multifocal pneumonia, and chronic interstitial lung disease. Assessment & Plan - Diagnosis (1) Heme positive stool Is this a current diagnosis for this admission?: Yes Plan: Impression and recommendations: Positive stools. Patient with history hemoptysis, long history of previous upper endoscopies. ReCommendations: 1. We will see with upper and lower endoscopy tomorrow; start bowel prep tonight; planned procedure including bleeding, infection, bowel injury, respiratory complications. He expresses understanding agrees to proceed. 2. Patient may require pulmonary evaluation, possible bronchoscopy. (2) Anemia Qualifiers: Anemia type: other cause Other causes of anemia: other cause, not classified Qualified Code(s): D64.89 - Other specified anemias Is this a current diagnosis for this admission?: Yes (3) Thoracotomy scar of right chest Is this a current diagnosis for this admission?: Yes (4) Hemoptysis Is this a current diagnosis for this admission?: Yes (5) History of leaking thoracic duct Is this a current diagnosis for this admission?: Yes (6) Osteomyelitis of femur Is this a current diagnosis for this admission?: Yes (7) Tobacco use Is this a current diagnosis for this admission?: Yes
[2019-06-10] MEDS: ALPRAZOLAM 0.5 MG TABLET PO SCH ×3 (05:17→21:41)
[2019-06-10 05:52] LABS: HEMATOCRIT 24.7 % (37.9-51.0); MEAN CORPUSCULAR HEMOGLOBIN 21.5 pg (27.0-33.4); MEAN CORPUSCULAR HGB CONC 30.9 g/dL (32.0-36.0); MEAN CORPUSCULAR VOLUME 70 fl (80-97); PLATELET COUNT 288 10^3/uL (150-450); RED BLOOD COUNT 3.54 10^6/uL (4.35-5.55); RED CELL DISTRIBUTION WIDTH 18.5 % (11.5-14.0); WHITE BLOOD COUNT 3.6 10^3/uL (4.0-10.5)
[2019-06-10 05:59] LABS: HEMOGLOBIN 7.6 g/dL (13.5-17.0)
[2019-06-10] MEDS ORDERED: PROPOFOL INJ 200 MG/20 ML VIAL IV ONE (08:18)
[2019-06-10] MEDS ORDERED: EPINEPHRINE INJ 1 MG/10 ML DISP.SYRIN ONE (08:33)
[2019-06-10] MEDS ORDERED: GLUCAGON,HUMAN RECOMB 1 MG INJ ONE (08:34)
[2019-06-10] MEDS ORDERED: DIPHENHYDRAMINE HCL 50 MG/ML VIAL IV PRN (09:43)
[2019-06-10] MEDS ORDERED: ONDANSETRON HCL INJ/PF 4 MG/2 ML SDV IV PRN (09:43)
[2019-06-10] MEDS ORDERED: FENTANYL CITRATE INJ/PF 100 MCG/2 ML AMPUL IV PRN ×3 (09:43)
[2019-06-10] MEDS: FAMOTIDINE 20 MG TABLET PO SCH ×2 (10:02→21:42)
[2019-06-10] MEDS ORDERED: FENTANYL CITRATE INJ/PF 100 MCG/2 ML AMPUL ONE (10:02)
--- NOTE | 2019-06-10 10:05 | Operative Report ---
Operative Report DATE OF SURGERY: 06/10/19 PREOPERATIVE DIAGNOSIS: 1. Blood loss anemia. 2. GI bleed. 3. Hemoptysis POSTOPERATIVE DIAGNOSIS: Same with. 1. Chronic distal esophagitis. 2. Mild duodenitis. 3. Ascending colon polyp. 4. Internal hemorrhoids. 5. Right and left-sided colitis moderately severe. 6. Mild distal proctitis OPERATION: 1. Apical gastroduodenoscopy. 2. Cold forceps biopsy of GE junction. 3. Total colonoscopy to cecum with photodocumentation. 4. Random biopsies of the ascending and descending colon. 5. Random biopsy of distal rectum. 6. ascending colon polypectomy SURGEON: GARRETT GILES ANESTHESIA: LMAC TISSUE REMOVED OR ALTERED: Biopsies as described above COMPLICATIONS: None ESTIMATED BLOOD LOSS: Scant INTRAOPERATIVE FINDINGS: See below PROCEDURE: The patient was taken the preop holding her to the main operating room where LMAC anesthesia was induced. He was placed in the left lateral cubitus position, knees to chest, oral mouthpiece inserted. Surgical plan surgical timeout were conducted. The flexible adult upper endoscope was advanced to the oropharynx, down the esophagus through the stomach into the duodenum. The patient tolerated procedure well. There was no evidence of tumor clot stricture or polyp. There is mild duodenitis but no ulceration. The scope was brought back to the pylorus which was normal. The stomach was essentially normal. No evidence of streaking or ulceration. The scope was retroflexed in the stomach and a good look at the GE junction was obtained. Small hiatal hernia. The scope was brought back to the GE junction in a retrograde fashion. There were chronic changes of the GE junction, with irregularity of the Z line. A random biopsy was chosen of the Z line with a cold forceps device. Minimal bleeding. There was no evidence of stricture tumor or ulceration. The remainder of the esophagus was unremarkable with no evidence of varices. The hypopharynx was grossly unremarkable. The scope was withdrawn. Patient tolerated this portion the procedure well. He is now placed in the extreme left lateral decubitus position. Instrumentation set up for colonoscopy. A rectal exam was performed. Of note the scrotum had multiple small pedunculated skin lesions. A lubricated index finger was inserted into the anal canal. There was no visible or palpable anal rectal pathology. The flexible pediatric colonoscope was advanced through the anal rectal canal all the way to the cecum. This was a reasonably well-prepped bowel with only a minimal amount of liquid watery green stool. The appendiceal orifice was visualized and photographed. The scope was withdrawn through the length of the colon checked the mucosa carefully. There was a small 2 mm pedunculated polyp in the ascending colon which was removed with 2 bites of the cold forceps device. Specimen labeled as ascending colon polyp and sent to pathology for permanent analysis. Bleeding was minimal. The ascending colon was significant for diffuse, variegated inflammation almost in a cobblestone configuration. A random ascending colon mucosal biopsy was chosen with the forceps device and sent as a sending colon. The transverse colon and descending colon had similar changes. A random biopsy of the ascending colon mucosa was also obtained and sent as descending colon mucosa. The upper rectum was spared however the distal rectum had small erythematous spots which were photographed and one biopsied and labeled as the distal rectum. There was no variegation of the mucosa. There were internal hemorrhoids. The scope was withdrawn to the patient's anus. He tolerated the procedure well, and was taken to recovery in stable condition. Impression: Minimal upper endoscopic findings; diffuse right and left sided colonic inflammation, consistent with colitis, moderately severe status post upper and lower endoscopy with multiple biopsies as described above Recommendations: 1. I believe the patient's source of GI bleeding is from the diffuse colitis. We await biopsies and referral to gastroenterology on an outpatient basis as clinically indicated 2. Agree with blood transfusions x2. 3. I discussed the above with hospitalist this morning. Surgery will sign off; reconsult if clinically indicated.
[2019-06-10] MEDS ORDERED: NORMAL SALINE 250 ML IV PRN ×2 (10:19)
--- NOTE | 2019-06-10 10:19 | PDOC PROGRESS REPORT ---
Subjective Progress Note for:: 06/10/19 Subjective:: ELZBIETA VILLAVICENCIO is a 29 year old male patient with past medical history of ruptured thoracic duct for which he undergone thoracotomy and right lower lobectomy at [facility] in [place], presented with chief complaint of intermittent bloodstained sputum for the last 3 weeks. Patient has associated shortness of breath which is worsening gradually. Patient denies any fever, chills, chest pain, palpitation or diaphoresis. Patient denies any loss of appetite, night sweating or weight loss. He denies any contact with chronically coughing patient. He denies also any incarceration or travel outside [place]. His blood work is significant for microcytic anemia with hemoglobin of 9.2 and his BNP is 454. CT scan and chest x-ray are reported as moderate mixed interstitial and airspace opacities. Pulmonary embolism has been ruled out. 06/08/2019: Patient seen and examined while he is resting on chair. Reports this the frequency of his hemoptysis has been decreasing. His shortness of breath is also improving. He does not have fever, nausea, vomiting or diarrhea. He is able to eat and tolerates well. His blood work is stable except for his hemoglobin dropped from 9.27.8. His MCV is also low and he has microcytic anemia. I requested iron studies and stool for occult blood. Patient has been started on Venofer. 06/09/2019: Patient seen while resting on chair. He is awake alert and oriented. He complains of being depressed. His labs shows that his hemoglobin has slightly increased to 7.9. He is a stool for occult blood is also turned positive. I will consult on consult challenged for possible colonoscopy and EGD. 06/10/2019: This morning patient has undergone EGD and colonoscopy. The EGD is unremarkable the colonoscopy revealed diffuse variegated inflammation of the ascending transverse and descending colon, which is suspicious for IBD. Biopsy taken. After 2 bags of Venofer hemoglobin further dropped to 7.6. I think it is appropriate to transfuse him 1 unit of packed RBC. Reason For Visit: HEMOPTYSIS Physical Exam Vital Signs: Temp Pulse Resp BP Pulse Ox 98.3 F 87 18 120/62 98 06/10/19 07:24 06/10/19 07:24 06/10/19 07:24 06/10/19 07:24 06/10/19 07:24 Intake & Output 06/09/19 06/10/19 06/11/19 06:59 06:59 06:59 Intake Total 1220 3245 Balance 1220 3245 Weight 61.1 kg 62.2 kg General appearance: PRESENT: no acute distress Eye exam: PRESENT: conjunctiva pale Neck exam: ABSENT: carotid bruit, JVD, lymphadenopathy, thyromegaly Respiratory exam: PRESENT: clear to auscultation jone. ABSENT: rales, rhonchi, wheezes Cardiovascular exam: PRESENT: RRR. ABSENT: diastolic murmur, rubs, systolic murmur GI/Abdominal exam: PRESENT: normal bowel sounds, soft. ABSENT: distended, guarding, mass, organolmegaly, rebound, tenderness Neurological exam: PRESENT: alert, awake, oriented to person, oriented to place, oriented to time, oriented to situation Results Laboratory Results: 06/10/19 05:19 06/08/19 05:03 06/10/19 06/10/19 05:19 05:19 WBC 3.6 L RBC 3.54 L Hgb 7.6 L Hct 24.7 L MCV 70 L MCH 21.5 L MCHC 30.9 L RDW 18.5 H Plt Count 288 C-Reactive Protein 14.2 H 06/07/19 04:55 Troponin I < 0.012 NT-Pro-B Natriuret Pep 454 H Impressions: Chest X-Ray 06/07/19 05:07 IMPRESSION: Moderate mixed interstitial and airpace opacities. Differential diagnosis includes pulmonary edema, multifocal pneumonia, and chronic interstitial lung disease. Assessment and Plan - Diagnosis (1) Microcytic anemia Is this a current diagnosis for this admission?: Yes Plan: Due to acute on chronic blood loss anemia. His colonoscopy revealed diffuse variegated inflammation of his ascending, transverse and descending colon. Start to box of Venofer his hemoglobin further dropped to 7.6 so I will transfuse him with 1 unit of packed RBC. (2) Hemoptysis Is this a current diagnosis for this admission?: Yes Plan: I discussed the case with Dr. Layton and he states that he will probably scope aim on Tuesday. (3) Possible multifocal pneumonia Is this a current diagnosis for this admission?: Yes Plan: Continue current antibiotics (4) History of leaking thoracic duct Is this a current diagnosis for this admission?: Yes Plan: Status post right thoracotomy and right lower lobe lobectomy. We will retrieve his medical records from [facility].
[2019-06-10] MEDS: LEVOFLOXACIN 750 MG/D5W RTU 750 MG/150 ML RTUPB IV SCH (10:57)
[2019-06-10] MEDS: ACETAMINOPHEN 325 MG TABLET PO PRN (11:01)
[2019-06-10 22:34] LABS: ABSOLUTE BASOPHILS # (AUTO) 0.1 10^3/uL (0.0-0.2); ABSOLUTE EOSINOPHILS # (AUTO) 0.2 10^3/uL (0.0-0.6); ABSOLUTE LYMPHOCYTES (AUTO) 0.5 10^3/uL (0.5-4.7); ABSOLUTE MONOCYTES (AUTO) 0.8 10^3/uL (0.1-1.4); ABSOLUTE NEUT (AUTO) 3.8 10^3/uL (1.7-8.2); BASOPHILS % (AUTO) 1.2 % (0-2); HEMATOCRIT 36.7 % (37.9-51.0); LYMPHOCYTES % (AUTO) 9.8 % (13-45); MEAN CORPUSCULAR HEMOGLOBIN 23.4 pg (27.0-33.4); MEAN CORPUSCULAR HGB CONC 31.5 g/dL (32.0-36.0); MONOCYTES % (AUTO) 15.1 % (3-13); PLATELET COUNT 351 10^3/uL (150-450); RED BLOOD COUNT 4.92 10^6/uL (4.35-5.55); RED CELL DISTRIBUTION WIDTH 19.6 % (11.5-14.0); SEGMENTED NEUTROPHILS % (AUTO) 70.9 % (42-78); TOTAL CELLS COUNTED % (AUTO) 100 %; WHITE BLOOD COUNT 5.4 10^3/uL (4.0-10.5)
[2019-06-10 22:36] LABS: HEMOGLOBIN 11.5 g/dL (13.5-17.0); MEAN CORPUSCULAR VOLUME 75 fl (80-97)
[2019-06-11] MEDS: ACETAMINOPHEN 325 MG TABLET PO PRN ×2 (00:03→12:39)
[2019-06-11 06:39] LABS: HEMOGLOBIN 10.2 g/dL (13.5-17.0); MEAN CORPUSCULAR HEMOGLOBIN 23.6 pg (27.0-33.4); MEAN CORPUSCULAR VOLUME 74 fl (80-97); PLATELET COUNT 291 10^3/uL (150-450); RED BLOOD COUNT 4.34 10^6/uL (4.35-5.55); RED CELL DISTRIBUTION WIDTH 19.8 % (11.5-14.0); WHITE BLOOD COUNT 4.3 10^3/uL (4.0-10.5)
[2019-06-11] MEDS: ALPRAZOLAM 0.5 MG TABLET PO SCH ×2 (06:51→13:46)
[2019-06-11] MEDS: FAMOTIDINE 20 MG TABLET PO SCH ×2 (09:35→21:45)
[2019-06-11] MEDS: LEVOFLOXACIN 750 MG/D5W RTU 750 MG/150 ML RTUPB IV SCH (09:35)
--- NOTE | 2019-06-11 12:48 | PDOC PROGRESS REPORT ---
Subjective Progress Note for:: 06/11/19 Subjective:: ELZBIETA VILLAVICENCIO is a 29 year old male patient with past medical history of ruptured thoracic duct for which he undergone thoracotomy and right lower lobectomy at [facility] in [place], presented with chief complaint of intermittent bloodstained sputum for the last 3 weeks. Patient has associated shortness of breath which is worsening gradually. Patient denies any fever, chills, chest pain, palpitation or diaphoresis. Patient denies any loss of appetite, night sweating or weight loss. He denies any contact with chronically coughing patient. He denies also any incarceration or travel outside [place]. His blood work is significant for microcytic anemia with hemoglobin of 9.2 and his BNP is 454. CT scan and chest x-ray are reported as moderate mixed interstitial and airspace opacities. Pulmonary embolism has been ruled out. 06/08/2019: Patient seen and examined while he is resting on chair. Reports this the frequency of his hemoptysis has been decreasing. His shortness of breath is also improving. He does not have fever, nausea, vomiting or diarrhea. He is able to eat and tolerates well. His blood work is stable except for his hemoglobin dropped from 9.27.8. His MCV is also low and he has microcytic anemia. I requested iron studies and stool for occult blood. Patient has been started on Venofer. 06/09/2019: Patient seen while resting on chair. He is awake alert and oriented. He complains of being depressed. His labs shows that his hemoglobin has slightly increased to 7.9. He is a stool for occult blood is also turned positive. I will consult on consult challenged for possible colonoscopy and EGD. 06/10/2019: This morning patient has undergone EGD and colonoscopy. The EGD is unremarkable the colonoscopy revealed diffuse variegated inflammation of the ascending transverse and descending colon, which is suspicious for IBD. Biopsy taken. After 2 bags of Venofer hemoglobin further dropped to 7.6. I think it is appropriate to transfuse him 1 unit of packed RBC. 06/11/2019: Patient seen while he is resting on chair. He is awake alert oriented. He states that the frequency of his hemoptysis has decreased. Dr. Layton will schedule him for bronchoscopy tomorrow. Reason For Visit: HEMOPTYSIS Physical Exam Vital Signs: Temp Pulse Resp BP Pulse Ox 98.1 F 74 24 H 110/58 L 98 06/11/19 07:36 06/11/19 07:36 06/11/19 07:36 06/11/19 07:36 06/11/19 07:36 Intake & Output 06/10/19 06/11/19 06/12/19 06:59 06:59 06:59 Intake Total 3245 1950 150 Balance 3245 1950 150 Weight 62.2 kg 63.8 kg General appearance: PRESENT: no acute distress Eye exam: PRESENT: conjunctiva pink Neck exam: ABSENT: carotid bruit, JVD, lymphadenopathy, thyromegaly Respiratory exam: PRESENT: decreased breath sounds Cardiovascular exam: PRESENT: RRR. ABSENT: diastolic murmur, rubs, systolic murmur GI/Abdominal exam: PRESENT: normal bowel sounds, soft. ABSENT: distended, guarding, mass, organolmegaly, rebound, tenderness Neurological exam: PRESENT: alert, awake, oriented to person, oriented to place, oriented to time, oriented to situation Results Laboratory Results: 06/11/19 05:50 06/08/19 05:03 06/10/19 06/10/19 06/11/19 10:50 22:12 05:50 WBC 5.4 4.3 RBC 4.92 4.34 L Hgb 11.5 L D 10.2 L Hct 36.7 L 32.0 L MCV 75 L D 74 L MCH 23.4 L 23.6 L MCHC 31.5 L 32.0 RDW 19.6 H 19.8 H Plt Count 351 291 Seg Neutrophils % 70.9 Lymphocytes % 9.8 L Monocytes % 15.1 H Eosinophils % 3.0 Basophils % 1.2 Absolute Neutrophils 3.8 Absolute Lymphocytes 0.5 Absolute Monocytes 0.8 Absolute Eosinophils 0.2 Absolute Basophils 0.1 Blood Type A POSITIVE Antibody Screen NEGATIVE 06/08/19 15:30 Sputum Gram Stain - Final 06/08/19 15:30 Sputum Sputum Culture - Final NORMAL CYNTHIA 06/07/19 04:55 Troponin I < 0.012 NT-Pro-B Natriuret Pep 454 H Impressions: Chest X-Ray 06/07/19 05:07 IMPRESSION: Moderate mixed interstitial and airpace opacities. Differential diagnosis includes pulmonary edema, multifocal pneumonia, and chronic interstitial lung disease. Assessment and Plan - Diagnosis (1) Microcytic anemia Is this a current diagnosis for this admission?: Yes Plan: Due to acute on chronic blood loss anemia. His colonoscopy revealed diffuse variegated inflammation of his ascending, transverse and descending colon. Start to box of Venofer his hemoglobin further dropped to 7.6 so I will transfuse him with 1 unit of packed RBC. (2) Hemoptysis Is this a current diagnosis for this admission?: Yes Plan: I discussed the case with Dr. Layton and he states that he will probably scope aim on Tuesday. (3) Possible multifocal pneumonia Is this a current diagnosis for this admission?: Yes Plan: Continue current antibiotics (4) History of leaking thoracic duct Is this a current diagnosis for this admission?: Yes Plan: Status post right thoracotomy and right lower lobe lobectomy. We will retrieve his medical records from [facility].
[2019-06-11] MEDS: KETOROLAC TROMETHAMINE INJ/PF 30 MG/1 ML SDV IV PRN (21:45)
[2019-06-11] MEDS: ALPRAZOLAM 0.5 MG TABLET PO PRN (23:03)
[2019-06-12] MEDS: FAMOTIDINE 20 MG TABLET PO SCH ×2 (09:13→22:23)
[2019-06-12] MEDS: LEVOFLOXACIN 750 MG TABLET PO SCH (09:13)
--- NOTE | 2019-06-12 10:52 | RADIOLOGY REPORT (SQ) ---
EXAM DESCRIPTION: CHEST 2 VIEWS COMPLETED DATE/TIME: 06/12/2019 10:36 am REASON FOR STUDY: pna/hemoptysis COMPARISON: CT angio chest 06/07/2019 CT abdomen pelvis 05/09/2017 AP chest 06/07/2019 EXAM PARAMETERS: NUMBER OF VIEWS: two views TECHNIQUE: Digital Frontal and Lateral radiographic views of the chest acquired. RADIATION DOSE: NA LIMITATIONS: none FINDINGS: LUNGS AND PLEURA: Stable pleural thickening/ bilateral pleural effusions right [place] n left. There pleural calcification along the right lower hemithorax unchanged from recent chest kerwin m 06/07/[address] abdomen pelvis 05/09/2017 Bibasilar consolidation is present unchanged from chest film 06/07/[address] 06/07/2019 and 05/09/2017. Pulmonary vascular congestion in the upper lobes is present. No gross alveolar edema. No pneumothorax MEDIASTINUM AND HILAR STRUCTURES: Surgical clips are present near the GE junction. HEART AND VASCULAR STRUCTURES: Cardiac silhouette size upper limits of normal BONES: No acute findings. HARDWARE: None in the chest. OTHER: No other significant finding. IMPRESSION: Chronic findings of pleural thickening with bilateral pleural effusions and bibasilar co nsolidation likely scarring. Evidence of old prior surgery near the GE junction Today's images demonstrate no gross acute findings TECHNICAL DOCUMENTATION: JOB ID: [id number] [employer]- All Rights Reserved Reading location - IP/workstation name: [email or web address]
--- NOTE | 2019-06-12 11:04 | Progress Note Acknowledgement ---
Progress Note Acknowledgement Progess Note Acknowledgement: I, the undersigned member of the medical staff with appropriate privileges and with supervisory authority over [Shamir Jacobs], a dependent practice allied health professional, acknowledge that I have reviewed the progress notes entered on this patient, and in my professional judgment believe that the assessment made and/or any care evidenced was appropriate
--- NOTE | 2019-06-12 11:08 | PDOC PROGRESS REPORT ---
Subjective Progress Note for:: 06/12/19 Subjective:: June 12, 2019-no complaints this a.m. Reason For Visit: HEMOPTYSIS Physical Exam Vital Signs: Temp Pulse Resp BP Pulse Ox 98.0 F 87 19 109/67 95 06/12/19 07:21 06/12/19 07:21 06/12/19 07:21 06/12/19 07:21 06/12/19 07:21 Intake & Output 06/11/19 06/12/19 06/13/19 06:59 06:59 06:59 Intake Total 1950 650 Balance 1950 650 Weight 63.8 kg 63.8 kg General appearance: PRESENT: no acute distress, well-developed, well-nourished Head exam: PRESENT: atraumatic, normocephalic Eye exam: PRESENT: conjunctiva pink, EOMI, PERRLA. ABSENT: scleral icterus Ear exam: PRESENT: normal external ear exam Mouth exam: PRESENT: moist, tongue midline Neck exam: ABSENT: carotid bruit, JVD, lymphadenopathy, thyromegaly Respiratory exam: PRESENT: clear to auscultation jone. ABSENT: rales, rhonchi, wheezes Cardiovascular exam: PRESENT: RRR. ABSENT: diastolic murmur, rubs, systolic murmur Pulses: PRESENT: normal dorsalis pedis pul Vascular exam: PRESENT: normal capillary refill GI/Abdominal exam: PRESENT: normal bowel sounds, soft. ABSENT: distended, guarding, mass, organolmegaly, rebound, tenderness Rectal exam: PRESENT: deferred Extremities exam: PRESENT: full ROM. ABSENT: calf tenderness, clubbing, pedal edema Neurological exam: PRESENT: alert, awake, oriented to person, oriented to place, oriented to time, oriented to situation, CN II-XII grossly intact. ABSENT: motor sensory deficit Psychiatric exam: PRESENT: appropriate affect, normal mood. ABSENT: homicidal ideation, suicidal ideation Skin exam: PRESENT: dry, intact, warm. ABSENT: cyanosis, rash Results Laboratory Results: 06/11/19 05:50 06/08/19 05:03 06/07/19 04:55 Troponin I < 0.012 NT-Pro-B Natriuret Pep 454 H Impressions: Chest X-Ray 06/12/19 00:00 IMPRESSION: Chronic findings of pleural thickening with bilateral pleural effusions and bibasilar consolidation likely scarring. Evidence of old prior surgery near the GE junction Today's images demonstrate no gross acute findings Assessment and Plan - Diagnosis (1) Microcytic anemia Is this a current diagnosis for this admission?: Yes Plan: Due to acute on chronic blood loss anemia. His colonoscopy revealed diffuse variegated inflammation of his ascending, transverse and descending colon. Start to box of Venofer his hemoglobin further dropped to 7.6 so I will transfuse him with 1 unit of packed RBC. June 12, 2019-most likely to chronic blood loss. Patient was heme positive on occult stool. Patient underwent colonoscopy and endoscopy per surgicalist with no acute findings. Biopsies were taken. Patient was started on Venofer but had a further drop in his hemoglobin so he was transfused 1 unit of packed red cells. At this time hemoglobin is 10 seem to be stable. Will repeat CBC in a.m. (2) Hemoptysis Is this a current diagnosis for this admission?: Yes Plan: I discussed the case with Dr. Layton and he states that he will probably scope aim on Tuesday. June 12, 2019-await bronchoscopy per Dr. Layton. (3) Possible multifocal pneumonia Is this a current diagnosis for this admission?: Yes Plan: Continue current antibiotics 06/12/2019-continue on Levaquin. Await cultures. (4) History of leaking thoracic duct Is this a current diagnosis for this admission?: Yes Plan: Status post right thoracotomy and right lower lobe lobectomy. We will retrieve his medical records from [facility]. June 12, 2019-awaiting records from [facility]. Patient planning to move back to [place] with family after discharge so he can be seen back at [facility] in case he needs some further treatment for this leaky thoracic duct. - Time Time Spent with patient: 15-24 minutes - Inpatient Certification Based on my medical assessment, after consideration of the patient's comorbidities, presenting symptoms, or acuity I expect that the services needed warrant INPATIENT care.: Yes I certify that my determination is in accordance with my understanding of Medicare's requirements for reasonable and necessary INPATIENT services [42 CFR 412.3e].: Yes Medical Necessity: Other - Monitor hemoglobin, bronchoscopy
[2019-06-12] MEDS ORDERED: VANCOMYCIN HCL 0 MG in DEXTROSE 5%-WATER 250 ML IV NR (11:45)
[2019-06-12 14:19] LABS: TOTAL PROTEIN 6.5 g/dL (6.3-8.2)
[2019-06-12] MEDS: VANCOMYCIN HCL 750 MG in DEXTROSE 5%-WATER 250 ML IV SCH ×2 (19:44→22:23)
--- NOTE | 2019-06-12 21:23 | XCELERA REPORT ---
[address] [address] Transthoracic Echocardiogram Report Name: ELZBIETA VILLAVICENCIO Age: 29 yrs Gender: Male : 1990 Patient Status: Inpatient Patient Location: ^[facility]^A Study Date: 06/12/2019 02:02 PM Height: 65 in Weight: 140 lb BSA: 1.7 m2 Procedure: A two-dimensional transthoracic echocardiogram with color flow and Doppler was performed. Study Quality: Fair. Reason For Study: vegatation / Endocarditis. History: vegatation / Endocarditis. Ordering Physician: JOHNATHAN^JAMES^R^^PAPER CUP HANDLE MACHINE OPERATOR Performed By: Luci Franco Interpretation Summary No defenite vegetation seen, but recommend RUSSEL to assess for this and to see if there is a PFO or small ASD. The left ventricle is normal in size. There is normal left ventricular wall thickness. The left ventricular ejection fraction is within normal limits. LV EF is 60% Doppler measurements suggest normal left ventricular diastolic function The left ventricular wall motion is normal. There is no thrombus. The Interatrial septum is aneurysmal.Cannot excude a PFO or small ASD,but no significant intracardiac shunts.No VSD seen. The right ventricle is normal in size and function. The right atrium is borderline dilated. The left atrial size is normal. There is no evidence of mitral valve prolapse. There is no vegetation seen on the mitral valve. There is no mitral valve stenosis. There is a trace to mild amount of mitral regurgitation There is no aortic valvular vegetation. There is no aortic valve stenosis There is no LVOT obstruction. No aortic regurgitation is present. There is no tricuspid stenosis. There is a trace to mild amount of tricuspid regurgitation There is mild pulmonary hypertension by echo RVSP is 40 mm of Hg , with RA mean of 0 to 5. The pulmonic valve is not well visualized. There is no pulmonic valvular stenosis. There is no pulmonic valvular regurgitation. The aortic root is normal size. The inferior vena cava appeared small and collapsed with respiration (RAP 0-5 mmHg) There is no pericardial effusion. No defenite vegetation seen, but recommend RUSSEL to assess for this and to see if there is a PFO or small ASD. MMode/2D Measurements & Calculations RVDd: 3.6 cm LVIDd: 5.1 cm FS: 30.5 % Ao root diam: 3.2 cm IVSd: 0.75 cm LVIDs: 3.6 cm EDV(Teich): 124.9 ml Ao root area: 8.0 cm2 LVPWd: 0.70 cm ESV(Teich): 53.0 ml EF(Teich): 57.6 % Doppler Measurements & Calculations MV E max laurie: MV dec slope: Ao V2 max: LV V1 max P.7 cm/sec 380.9 cm/sec2 82.2 cm/sec 2.0 mmHg MV A max laurie: MV dec time: 0.18 sec Ao max PG: LV V1 max: 55.5 cm/sec 2.7 mmHg 71.4 cm/sec MV E/A: 1.2 PA V2 max: TR max laurie: 68.9 cm/sec 294.8 cm/sec PA max P.9 mmHg TR max P.9 mmHg Left Ventricle The left ventricle is normal in size. There is normal left ventricular wall thickness. The left ventricular ejection fraction is within normal limits. LV EF is 60%. Doppler measurements suggest normal left ventricular diastolic function. The left ventricular wall motion is normal. There is no thrombus. The Interatrial septum is aneurysmal.Cannot excude a PFO or small ASD,but no significant intracardiac shunts.No VSD seen. Right Ventricle The right ventricle is normal in size and function. Atria The right atrium is borderline dilated. The left atrial size is normal. Mitral Valve There is no evidence of mitral valve prolapse. There is no vegetation seen on the mitral valve. There is no mitral valve stenosis. There is a trace to mild amount of mitral regurgitation. Aortic Valve There is no aortic valvular vegetation. There is no aortic valve stenosis. There is no LVOT obstruction. No aortic regurgitation is present. Tricuspid Valve There is no tricuspid stenosis. There is a trace to mild amount of tricuspid regurgitation. There is mild pulmonary hypertension by echo. RVSP is 40 mm of Hg , with RA mean of 0 to 5. Pulmonic Valve The pulmonic valve is not well visualized. There is no pulmonic valvular stenosis. There is no pulmonic valvular regurgitation. Great Vessels The aortic root is normal size. The inferior vena cava appeared small and collapsed with respiration (RAP 0-5 mmHg). Effusions There is no pericardial effusion. : JOHNATHAN^JAMES^R^^PAPER CUP HANDLE MACHINE OPERATOR > Christianne Pacheco
[2019-06-12] MEDS: ALPRAZOLAM 0.5 MG TABLET PO PRN (22:23)
[2019-06-13] MEDS: KETOROLAC TROMETHAMINE INJ/PF 30 MG/1 ML SDV IV PRN (00:33)
[2019-06-13] MEDS: VANCOMYCIN HCL 750 MG in DEXTROSE 5%-WATER 250 ML IV SCH ×3 (05:29→21:30)
[2019-06-13 06:35] LABS: HEMATOCRIT 33.8 % (37.9-51.0); HEMOGLOBIN 10.6 g/dL (13.5-17.0); MEAN CORPUSCULAR HEMOGLOBIN 23.7 pg (27.0-33.4); MEAN CORPUSCULAR HGB CONC 31.4 g/dL (32.0-36.0); MEAN CORPUSCULAR VOLUME 76 fl (80-97); PLATELET COUNT 285 10^3/uL (150-450); RED BLOOD COUNT 4.46 10^6/uL (4.35-5.55); RED CELL DISTRIBUTION WIDTH 21.3 % (11.5-14.0); WHITE BLOOD COUNT 4.5 10^3/uL (4.0-10.5)
[2019-06-13 06:42] LABS: INTERNATIONAL RATION (INR) 1.14; PROTHROMBIN TIME 14.7 SEC (11.4-15.4)
[2019-06-13 06:43] LABS: PARTIAL THROMBOPLASTIN TIME 33.5 SEC (23.5-35.8)
[2019-06-13 06:59] LABS: BLOOD UREA NITROGEN 16 mg/dL (7-20); CALCIUM 8.6 mg/dL (8.4-10.2); GLUCOSE 94 mg/dL (75-110)
[2019-06-13 07:04] LABS: ANION GAP 7 (5-19); CARBON DIOXIDE 32 mmol/L (22-30); CHLORIDE 100 mmol/L (98-107)
--- NOTE | 2019-06-13 09:25 | PDOC PROGRESS REPORT ---
Subjective Progress Note for:: 06/13/19 Subjective:: June 12, 2019-no complaints this a.m. June 13, 2019-depression and anxiety Reason For Visit: HEMOPTYSIS Physical Exam Vital Signs: Temp Pulse Resp BP Pulse Ox 97.7 F 92 14 124/71 95 06/13/19 07:47 06/13/19 07:47 06/13/19 07:47 06/13/19 07:47 06/13/19 07:47 Intake & Output 06/12/19 06/13/19 06/14/19 06:59 06:59 06:59 Intake Total 650 1800 Balance 650 1800 Weight 63.8 kg 64.2 kg General appearance: PRESENT: no acute distress, well-developed, well-nourished Head exam: PRESENT: atraumatic, normocephalic Eye exam: PRESENT: conjunctiva pink, EOMI, PERRLA. ABSENT: scleral icterus Ear exam: PRESENT: normal external ear exam Mouth exam: PRESENT: moist, tongue midline Neck exam: ABSENT: carotid bruit, JVD, lymphadenopathy, thyromegaly Respiratory exam: PRESENT: clear to auscultation jone. ABSENT: rales, rhonchi, wheezes Cardiovascular exam: PRESENT: RRR. ABSENT: diastolic murmur, rubs, systolic murmur Pulses: PRESENT: normal dorsalis pedis pul Vascular exam: PRESENT: normal capillary refill GI/Abdominal exam: PRESENT: normal bowel sounds, soft. ABSENT: distended, guarding, mass, organolmegaly, rebound, tenderness Rectal exam: PRESENT: deferred Extremities exam: PRESENT: full ROM. ABSENT: calf tenderness, clubbing, pedal edema Neurological exam: PRESENT: alert, awake, oriented to person, oriented to place, oriented to time, oriented to situation, CN II-XII grossly intact. ABSENT: motor sensory deficit Psychiatric exam: PRESENT: depressed, flat affect. ABSENT: homicidal ideation, suicidal ideation Skin exam: PRESENT: dry, intact, warm. ABSENT: cyanosis, rash Results Laboratory Results: 06/13/19 05:38 06/13/19 05:38 06/12/19 06/13/19 06/13/19 13:47 05:38 05:38 WBC 4.5 RBC 4.46 Hgb 10.6 L Hct 33.8 L MCV 76 L MCH 23.7 L MCHC 31.4 L RDW 21.3 H Plt Count 285 Sodium 139.4 Potassium 4.0 Chloride 100 Carbon Dioxide 32 H Anion Gap 7 BUN 16 Creatinine 0.65 Est GFR ( Amer) > 60 Est GFR (Non-Af Amer) > 60 Glucose 94 Calcium 8.6 Total Protein 6.5 06/07/19 18:56 Blood Blood Culture - Final NO GROWTH IN 5 DAYS 06/07/19 04:55 Troponin I < 0.012 NT-Pro-B Natriuret Pep 454 H Impressions: Chest X-Ray 06/12/19 00:00 IMPRESSION: Chronic findings of pleural thickening with bilateral pleural effusions and bibasilar consolidation likely scarring. Evidence of old prior surgery near the GE junction Today's images demonstrate no gross acute findings Assessment and Plan - Diagnosis (1) Microcytic anemia Is this a current diagnosis for this admission?: Yes Plan: Due to acute on chronic blood loss anemia. His colonoscopy revealed diffuse variegated inflammation of his ascending, transverse and descending colon. Start to box of Venofer his hemoglobin further dropped to 7.6 so I will transfuse him with 1 unit of packed RBC. June 12, 2019-most likely to chronic blood loss. Patient was heme positive on occult stool. Patient underwent colonoscopy and endoscopy per surgicalist with no acute findings. Biopsies were taken. Patient was started on Venofer but had a further drop in his hemoglobin so he was transfused 1 unit of packed red cells. At this time hemoglobin is 10 seem to be stable. Will repeat CBC in a.m. Other symptoms 19-stable at this time we will continue to follow. Patient risk continues to receive Venofer. (2) Hemoptysis Is this a current diagnosis for this admission?: Yes Plan: I discussed the case with Dr. Layton and he states that he will probably scope aim on Tuesday. June 12, 2019-await bronchoscopy per Dr. Layton. June 13, 2019. Possible bronchoscopy today per Dr. Layton (3) Possible multifocal pneumonia Is this a current diagnosis for this admission?: Yes Plan: Continue current antibiotics 06/12/2019-continue on Levaquin. Await cultures. 06/13/2019-patient continues on Levaquin at this time. Patient also blood culture returned with gram-positive cocci place him on vancomycin at that time. Will await sensitivities. (4) History of leaking thoracic duct Is this a current diagnosis for this admission?: Yes Plan: Status post right thoracotomy and right lower lobe lobectomy. We will retrieve his medical records from [facility]. June 12, 2019-awaiting records from [facility]. Patient planning to move back to [place] with family after discharge so he can be seen back at [facility] in case he needs some further treatment for this leaky thoracic duct. June 13, 2019-continue to await old records from [facility]. (5) Anxiety Is this a current diagnosis for this admission?: Yes Plan: June 13, 2019-patient was on Xanax 1 mg p.o. 3 times daily discussed with patient will place patient on longer acting Valium 5 mg 3 times daily as needed. Will adjust as needed. (6) Depression Is this a current diagnosis for this admission?: Yes Plan: June 13, 2019-start patient on Celexa 20 g p.o. daily - Time Time Spent with patient: 15-24 minutes - Inpatient Certification Based on my medical assessment, after consideration of the patient's comorbidit ies, presenting symptoms, or acuity I expect that the services needed warrant INPATIENT care.: Yes I certify that my determination is in accordance with my understanding of [facility]'s requirements for reasonable and necessary INPATIENT services [42 CFR 412.3e].: Yes Medical Necessity: Other - Bronchoscopy
--- NOTE | 2019-06-13 10:29 | RADIOLOGY REPORT (SQ) ---
EXAM DESCRIPTION: U/S CHEST COMPLETED DATE/TIME: 06/13/2019 10:09 am REASON FOR STUDY: r pleural effusion COMPARISON: 06/07/2019 LIMITATIONS: None. PROCEDURE: Limited ultrasound evaluation of the right hemithorax was performed for evaluation of suf ficient pleural fluid. Chronic pleural thickening and calcifications were noted without sufficient f luid for thoracentesis. The procedure was aborted at this time. Images acquired during the procedure were stored on PACS. FINDINGS: Insufficient fluid for thoracentesis. IMPRESSION: Aborted ultrasound-guided thoracentesis secondary to insufficient fluid volume. COMMENT: Patient medication list reviewed: Yes- Quality ID# [id number]:Eligible professional attests to doc umenting in the medical record they obtained, updated, or reviewed the patient's current medications. TECHNICAL DOCUMENTATION: JOB ID: [id number] [employer]- All Rights Reserved Reading location - IP/workstation name: [email or web address]
[2019-06-13] MEDS: FAMOTIDINE 20 MG TABLET PO SCH ×2 (10:35→21:30)
[2019-06-13] MEDS: CITALOPRAM HYDROBROMIDE 20 MG TABLET PO SCH (10:35)
[2019-06-13] MEDS: LEVOFLOXACIN 750 MG TABLET PO SCH (10:35)
[2019-06-13 14:26] LABS: VANCOMYCIN,TROUGH 9.4 ug/mL (5.0-20.0)
[2019-06-13] MEDS: DIAZEPAM 5 MG TABLET PO PRN ×2 (16:13→23:51)
[2019-06-14 06:00] LABS: HEMATOCRIT 33.5 % (37.9-51.0); HEMOGLOBIN 10.7 g/dL (13.5-17.0); MEAN CORPUSCULAR HEMOGLOBIN 24.1 pg (27.0-33.4); MEAN CORPUSCULAR HGB CONC 31.9 g/dL (32.0-36.0); MEAN CORPUSCULAR VOLUME 75 fl (80-97); PLATELET COUNT 265 10^3/uL (150-450); RED BLOOD COUNT 4.45 10^6/uL (4.35-5.55); RED CELL DISTRIBUTION WIDTH 21.7 % (11.5-14.0)
[2019-06-14] MEDS: VANCOMYCIN HCL 750 MG in DEXTROSE 5%-WATER 250 ML IV SCH (06:08)
[2019-06-14] MEDS: ACETAMINOPHEN 325 MG TABLET PO PRN (06:11)
[2019-06-14 06:15] LABS: ANION GAP 6 (5-19); BLOOD UREA NITROGEN 14 mg/dL (7-20); CALCIUM 8.4 mg/dL (8.4-10.2); CARBON DIOXIDE 31 mmol/L (22-30); CHLORIDE 101 mmol/L (98-107); GLUCOSE 91 mg/dL (75-110); POTASSIUM 4.2 mmol/L (3.6-5.0)
[2019-06-14 06:16] LABS: VANCOMYCIN,TROUGH 12.1 ug/mL (5.0-20.0)
--- NOTE | 2019-06-14 08:33 | PDOC DISCHARGE SUMMARY ---
General - Admit/Disc Date/PCP Admission Date/Primary Care Provider: 06/07/19 08:34 No primary care We will see Dr. Layton in consultation on outpatient basis Discharge Date: 06/14/19 - Discharge Diagnosis (1) Microcytic anemia Is this a current diagnosis for this admission?: Yes (2) Hemoptysis Is this a current diagnosis for this admission?: Yes (3) Possible multifocal pneumonia Is this a current diagnosis for this admission?: Yes (4) History of leaking thoracic duct Is this a current diagnosis for this admission?: Yes (5) Anxiety Is this a current diagnosis for this admission?: Yes (6) Depression Is this a current diagnosis for this admission?: Yes - Additional Information Resuscitation Status: Full Code Discharge Diet: As Tolerated Discharge Activity: Activity As Tolerated Prescriptions: Citalopram Hydrobromide [Celexa 20 mg Tablet] 20 mg PO DAILY #30 tablet Diazepam [Valium 5 mg Tablet] 5 mg PO TID #21 tablet Levofloxacin [Levaquin 750 mg Tablet] 750 mg PO DAILY #4 tablet Sulfamethoxazole/Trimethoprim [Bactrim Ds Tablet] 1 each PO BID #14 tablet Home Medications: Citalopram Hydrobromide [Celexa 20 mg Tablet] 20 mg PO DAILY #30 tablet 06/14/19 Diazepam [Valium 5 mg Tablet] 5 mg PO TID #21 tablet 06/14/19 Levofloxacin [Levaquin 750 mg Tablet] 750 mg PO DAILY #4 tablet 06/14/19 Sulfamethoxazole/Trimethoprim [Bactrim Ds Tablet] 1 each PO BID #14 tablet 06/14/19 History of Present Illness History of Present Illness: ELZBIETA VILLAVICENCIO is a 29 year old male who presented to the ER with hemoptysis. Hospital Course Hospital Course: Patient presented to ER on 06/07/2019 with hemoptysis. Patient does have a history of a thoracic duct leak for which he had undergone thoracotomy and right lower lobectomy at [facility]. Patient presented with complaints of intermittent bloodstained sputum for the last 3 weeks. He had associated shortness of breath which has gradually worsened. Patient denies any fevers, chills, chest pain, palpitation or diaphoresis at time. He denies any contact with chronically ill or coughing patients. He did have a blood work that was significant for microcytic anemia and hemoglobin 9.2 and a BNP of 454. Chest x-ray and CT scan was reported as moderate mixed interstitial and airspace opacities but could rule out pulmonary embolism. Patient was admitted to the hospital underwent multiple testing. Patient was seen by Dr. Layton who will order thoracentesis. Thoracentesis cannot be obtained as patient did not have enough fluid on exam for patient had no further bouts of hemoptysis through his hospital stay and I discussed this with Dr. Layton this morning. Doctors would like to see this patient on outpatient basis and please patient is safe to go home at this time. At this time patient be sent home will be placed on Levaquin to continue a 7-day course for pneumonia as well as Bactrim DS 1 p.o. twice daily #14 to continue a 10-day course of antibiotics for gram-positive cocci in 1 blood culture. Patient will follow-up with Dr. Layton in 1 week. Patient will return to the ER with any further complaints of hemoptysis.. Physical Exam Vital Signs: Temp Pulse Resp BP Pulse Ox 98.5 F 93 16 127/76 H 96 06/13/19 16:40 06/13/19 16:40 06/13/19 16:40 06/13/19 16:40 06/13/19 16:40 Intake & Output 06/13/19 06/14/19 06/15/19 06:59 06:59 06:59 Intake Total 1800 1372 Balance 1800 1372 Weight 64.2 kg 55.3 kg General appearance: PRESENT: no acute distress, well-developed, well-nourished Head exam: PRESENT: atraumatic, normocephalic Eye exam: PRESENT: conjunctiva pink, EOMI, PERRLA. ABSENT: scleral icterus Ear exam: PRESENT: normal external ear exam Mouth exam: PRESENT: moist, tongue midline Neck exam: ABSENT: carotid bruit, JVD, lymphadenopathy, thyromegaly Respiratory exam: PRESENT: clear to auscultation jone. ABSENT: rales, rhonchi, wheezes Cardiovascular exam: PRESENT: RRR. ABSENT: diastolic murmur, rubs, systolic murmur Pulses: PRESENT: normal dorsalis pedis pul Vascular exam: PRESENT: normal capillary refill GI/Abdominal exam: PRESENT: normal bowel sounds, soft. ABSENT: distended, guarding, mass, organolmegaly, rebound, tenderness Rectal exam: PRESENT: deferred Extremities exam: PRESENT: full ROM. ABSENT: calf tenderness, clubbing, pedal edema Neurological exam: PRESENT: alert, awake, oriented to person, oriented to place, oriented to time, oriented to situation, CN II-XII grossly intact. ABSENT: motor sensory deficit Psychiatric exam: PRESENT: appropriate affect, normal mood. ABSENT: homicidal ideation, suicidal ideation Skin exam: PRESENT: dry, intact, warm. ABSENT: cyanosis, rash Results Laboratory Results: 06/14/19 05:42 06/14/19 05:42 06/13/19 06/14/19 06/14/19 13:49 05:42 05:42 WBC 5.0 RBC 4.45 Hgb 10.7 L Hct 33.5 L MCV 75 L MCH 24.1 L MCHC 31.9 L RDW 21.7 H Plt Count 265 Sodium 137.7 Potassium 4.2 Chloride 101 Carbon Dioxide 31 H Anion Gap 6 BUN 14 Creatinine 0.71 0.68 Est GFR ( Amer) > 60 > 60 Est GFR (Non-Af Amer) > 60 > 60 Glucose 91 Calcium 8.4 06/07/19 04:55 Troponin I < 0.012 NT-Pro-B Natriuret Pep 454 H Impressions: Chest X-Ray 06/12/19 00:00 IMPRESSION: Chronic findings of pleural thickening with bilateral pleural effusions and bibasilar consolidation likely scarring. Evidence of old prior surgery near the GE junction Today's images demonstrate no gross acute findings Chest Ultrasound 06/13/19 00:00 IMPRESSION: Aborted ultrasound-guided thoracentesis secondary to insufficient fluid volume. Qualifiers - * PATIENT BEING DISCHARGED WITH ANY OF THE FOLLOWING DIAGNOSIS: No Acute Heart Failure - Is this a Heart Failure Patient?: No Plan Time Spent: Greater than 30 Minutes
--- NOTE | 2019-06-14 08:37 | ADVANCED CARE ---
- Diagnosis (1) Microcytic anemia Diagnosis Current: Yes (2) Hemoptysis Diagnosis Current: Yes (3) Possible multifocal pneumonia Diagnosis Current: Yes (4) History of leaking thoracic duct Diagnosis Current: Yes (5) Anxiety Diagnosis Current: Yes (6) Depression Diagnosis Current: Yes Attendance: Myself and patient Resuscitation Status: Full Code Discussion: Discussed with patient about plan of care. At this time will discharge patient home he will follow-up Dr. Layton in 1 week. I will continue patient on Levaquin x 4 more days to total 7 days for his pneumonia as well as Bactrim DS 1 p.o. twice daily #14 for gram-positive cocci in 1 blood culture. We will also place patient on Valium 5 g p.o. 3 times daily as needed #21 for anxiety. Patient removed back to [place] with family and believes to be seen at [facility] for further evaluation and treatment. Care Planning Goals: 1-continue Levaquin for pneumonia 2-Bactrim DS 1 p.o. twice daily #14 for gram-positive cocci in 1 blood culture 3-Valium 5 g p.o. 3 times daily as needed #21 anxiety 4-follow-up with Dr. Layton on outpatient basis. 5-patient returning to [place] live with family will return to [facility] for evaluation Time Spent: 20 minutes
[2019-06-14 09:11] VITALS: BP 115/63
[2019-06-14] MEDS: CITALOPRAM HYDROBROMIDE 20 MG TABLET PO SCH (11:27)
[2019-06-14] MEDS: FAMOTIDINE 20 MG TABLET PO SCH (11:27)
[2019-06-14] MEDS: LEVOFLOXACIN 750 MG TABLET PO SCH (11:27)
== END 2019-06-14 14:45 | disposition home or self-care (01) | DRG 811 ==
LOC: ER 04:36 → UNDOADMIN 08:34 → EH 08:34 → 4N 11:59
PROVIDERS: ADMIT Internal Medicine; ATTEND Internal Medicine
PROC: 0DBM8ZX Excision of Descending Colon, Via Natural or Artificial Opening Endoscopic, Diagnostic (ICD-10-PCS; 2019-06-10)
PROC: 0DBP8ZX Excision of Rectum, Via Natural or Artificial Opening Endoscopic, Diagnostic (ICD-10-PCS; 2019-06-10)
PROC: 30233N1 Transfusion of Nonautologous Red Blood Cells into Peripheral Vein, Percutaneous Approach (ICD-10-PCS; 2019-06-10)
PROC: 0DB48ZX Excision of Esophagogastric Junction, Via Natural or Artificial Opening Endoscopic, Diagnostic (ICD-10-PCS; principal; 2019-06-10 08:30)
PROC: 0DBK8ZX Excision of Ascending Colon, Via Natural or Artificial Opening Endoscopic, Diagnostic (ICD-10-PCS; 2019-06-10 08:30)
DX: D62 Acute posthemorrhagic anemia (principal); J18.9 Pneumonia, unspecified organism; R04.2 Hemoptysis; Z99.81 Dependence on supplemental oxygen; I89.8 Other specified noninfective disorders of lymphatic vessels and lymph nodes; K52.9 Noninfective gastroenteritis and colitis, unspecified; K20.9 Esophagitis, unspecified; K29.80 Duodenitis without bleeding; K63.5 Polyp of colon; K64.8 Other hemorrhoids; K62.89 Other specified diseases of anus and rectum; F41.9 Anxiety disorder, unspecified; F32.9 Major depressive disorder, single episode, unspecified; B96.89 Other specified bacterial agents as the cause of diseases classified elsewhere; M62.50 Muscle wasting and atrophy, not elsewhere classified, unspecified site; R19.5 Other fecal abnormalities; R06.89 Other abnormalities of breathing; R09.02 Hypoxemia; Z90.2 Acquired absence of lung [part of]; Z86.14 Personal history of Methicillin resistant Staphylococcus aureus infection; Z88.6 Allergy status to analgesic agent; Z72.0 Tobacco use; Z79.82 Long term (current) use of aspirin
CPT/HCPCS: 36415; 36430; 43239; 45380; 71045; 71046; 71275; 76604; 80048; 80053; 80202; 813; 82272; 82565; 82607; 82728; 82746; 82803; 83540; 83550; 83615; 83880; 84155; 84484; 85025; 85027; 85045; 85610; 85652; 85730; 86140; 86850; 86900; 86901; 86920; 87040; 87070; 87077; 87205; 88304; 88305; 93005; 93010; 93306; 96374; 99285; J0171; J1610; J1756; J1885; J1940; J1956; J2704; J3010; J3370; J3490; J7050; J7060; P9016